=== PATIENT | male | born 1940 | race Caucasian/White ===

== ENCOUNTER → 2020-05-05 13:06 | Outpatient (CLI) | payer MEDICARE, OTHER, SELFPAY | PROVIDERS: PCP Internal Medicine; Referring Provider Internal Medicine Cardiovascular Disease; Visit Provider Internal Medicine Cardiovascular Disease | DX: I45.5 Other specified heart block (principal); I45.10 Unspecified right bundle-branch block; Z86.73 Personal history of transient ischemic attack (TIA), and cerebral infarction without residual deficits; I25.810 Atherosclerosis of coronary artery bypass graft(s) without angina pectoris; Z95.1 Presence of aortocoronary bypass graft; Z95.5 Presence of coronary angioplasty implant and graft; E11.9 Type 2 diabetes mellitus without complications | CPT/HCPCS: 93225; 93226 ==

== ENCOUNTER → 2020-12-30 06:49 | Outpatient (CLI) | payer MEDICARE, OTHER, SELFPAY ==
--- NOTE | 2020-12-30 17:43 | STRESSREP ---
Stress Test Report Pharmacologic myocardial perfusion stress test. 80-year-old male with a history of nonsustained ventricular tachycardia status post coronary bypass surgery. Stress protocol: Resting EKG demonstrates atrial rhythm with a rate of 97 bpm right bundle branch block is noted resting blood pressure is 150/84 mmHg. 0.4 mg of regadenoson was infused per usual protocol followed by rapid intravenous saline flush injection continuous EKG monitoring was performed. The patient maintained an atrial rhythm with a heart rate of approximately 112 bpm with a maximum of the same which was 78% of max impact at heart rate the maximum workload was one metabolic equivalent. At rest there were no ST or T wave changes noted with did not meet the criteria for ischemia and at peak infusion nonspecific ST changes were noted with did not meet the criteria for ischemia. Patient appeared to maintain his atrial rhythm. Myocardial perfusion protocol. 10.5 mCi of technetium 99m sestamibi was injected at rest. 0.4 mg of regadenoson was infused per usual protocol. At peak infusion 33.6 mCi of technetium 99m sestamibi was injected stress images were obtained stress and rest images were reconstructed and compared in the short axis vertical long and horizontal long axis and gated images were also obtained per Perfusion SPECT analysis: Review of the stress images demonstrate a mildly dilated cardiac silhouette size. There is a large defect on the stress images involving the entire inferior wall extending to the apex with normal perfusion noted in the anterior wall and lateral wall. The resting images demonstrate a similar pattern. The above appears to be suggestive of a previous extensive inferior infarct. No reversibility is noted to suggest ischemia. Gated SPECT analysis: The gated ejection fraction is 32%. Conclusion: Abnormal myocardial perfusion stress test with evidence of previous extensive inferior infarct. No ischemia is noted. Dilated cardiomyopathy is present. Atrial tachyarrhythmia noted.
== END ==
PROVIDERS: PCP Internal Medicine; Referring Provider Physician Assistant Medical; Visit Provider Physician Assistant Medical
DX: I47.1 Supraventricular tachycardia (principal); I42.0 Dilated cardiomyopathy; I25.2 Old myocardial infarction
CPT/HCPCS: 78452; 93017; A9500; A4216; J2785

== ENCOUNTER → 2021-01-16 10:47 | Outpatient (CLI) | payer MEDICARE, OTHER, SELFPAY ==
--- NOTE | 2021-01-16 10:49 | ECHOD_ITS ---
Reason For Study: SYNCOPE/NEAR SYNCOPE Procedure This was a 2D Doppler, Color Flow transthoracic echocardiogram. The study was technically difficult. DEFINITY DEFERRED due to elevated PAP. Exam performed in department. Left Ventricle Normal LV size. The estimated ejection fraction is 25 %. Stage 3 diastolic dysfunction. There are regional wall motion abnormalities as specified. Anterior [place] : Severely Hypokinetic. Mid- Anterior : Severely Hypokinetic. Mid-anteroseptal : Severely Hypokinetic. The rest of the wall segments are hypokinetic. Right Ventricle Normal RV size. Normal systolic function. Atria Normal left atrium. Normal right atrium. Mitral Valve Normal mitral valve. Tricuspid Valve Normal tricuspid valve. Moderate (2+) tricuspid valve insufficiency. Pulmonary artery systolic pressure is 62 mmHg. Moderate pulmonary hypertension. Aortic Valve Trisinus/trileaflet aortic valve. Mild (1+) aortic valve insufficiency. Pulmonic Valve Normal pulmonic valve. Great Vessels Normal aortic root. The pulmonary artery is normal size. Normal inferior vena cava. Pericardium/Pleural No pericardial effusion. MMode/2D Measurements & Calculations LVIDd: 5.1 cm IVSd: 0.71 cm Ao root diam: 2.5 cm LVIDs: 4.7 cm LVPWd: 0.81 cm RVDd: 3.7 cm FS: 6.9 % LAV(MOD-bp): 58.3 ml LA A4 area: 20.5 cm2 LA dimension(2D): 4.5 cm LAV(MOD-bp) Indexed: 31.2 ml/m2 LAV(MOD-sp2): 58.2 ml LAV(MOD-sp4): 57.6 ml RA A4 area: 11.9 cm2 Doppler Measurements & Calculations MV E max napoleon: 110.7 cm/sec Lat Peak E' [place]: 5.1 cm/sec Med Peak E' [place]: 2.3 cm/sec MV A max nap[place]on: 51.4 cm/sec E/E' lat: 21.6 E/E' med: 48.3 MV E/A: 2.2 Ao V2 max: 79.9 cm/sec AI max napoleon: 319.0 cm/sec LV V1 max: 61.2 cm/sec Ao max P.6 mmHg AI max P.7 mmHg LV V1 max P.5 mmHg AI dec slope: 268.8 cm/sec2 AI P1/2t: 347.6 msec PA V2 max: 86.9 cm/sec PI end-d napoleon: 167.4 cm/sec TR max napoleon: 381.8 cm/sec TR max P.3 mmHg ECHO/Echo Complete Interpretation Summary Normal LV size. The estimated ejection fraction is 25 %. Stage 3 diastolic dysfunction. Pulmonary artery systolic pressure is 62 mmHg. Moderate pulmonary hypertension. The study was technically difficult. Compared to previous study, the left ventr icular systolic function has worsened.. Ordering Physician: Roseanne Jacques Referring Physician: BINTA PUENTES Performed By: Lucila Wade, MAMI, RVT
== END ==
PROVIDERS: PCP Internal Medicine; Referring Provider Physician Assistant Medical; Visit Provider Physician Assistant Medical
DX: I47.1 Supraventricular tachycardia (principal); R94.39 Abnormal result of other cardiovascular function study
CPT/HCPCS: 93306

== ENCOUNTER 2021-01-26 15:28 | Observation (INO) | payer MEDICARE, OTHER, SELFPAY ==
--- NOTE | 2021-01-19 10:13 | RAD_ITS ---
STUDY: X-RAY CHEST REASON FOR EXAM: Male, 80 years old. [place] TECHNIQUE: PA and lateral views of the chest. COMPARISON: None. FINDINGS: There is a pattern of left greater than right peripheral interstitial densities. There is patchy density in the left lung base blunting of the left costophrenic angle. There is linear density along the mid left chest projected over the heart. There is moderate cardiac enlargement. Sternotomy wires are seen midline. Normal mediastinum and laverne. Normal visualized pulmonary arteries. There is atherosclerotic calcification of the aortic arch with tortuosity. There are diffuse degenerative changes of the visualized thoracic spine. Normal visualized ribs, clavicles, and shoulders. There is no demonstrated abnormality of the visualized soft tissue structures of the upper abdomen. RAD/Chest PA and Lateral IMPRESSION: Left greater than right peripheral interstitial infiltrates. Consider possible atypical pneumonia possible viral pneumonia. Potentially asymmetric edema. Small left effusion. Cardiomegaly status post sternotomy. Electronically Signed: Chastity Smith MD at 0:59 EST Tel , Service support ,
[2021-01-19 10:50] LABS: Absolute Lymphocyte Count 1.02 X10^3/uL (0.83-4.51); Absolute Neutrophil Count 6.2 X10^3/uL (2.0-7.7); Basophil# 0.05 X10^3/uL; Basophil% 0.6 % (0-1); Eosinophil# 0.19 X10^3/uL; Eosinophils% 2.3 % (0-5); Hematocrit 35.3 % (40-54); Hemoglobin 11.5 g/dL (13.0-16.5); Lymphocyte # 1.02 X10^3/ul (0.83-4.51); Lymphocyte % 12.3 % (19-41); Mean Corp Hgb Conc 32.6 g/dL (32-36); Mean Corpuscular Hgb 31.9 pg (27.0-32.0); Mean Corpuscular Volume 98.1 fL (80-94); Monocyte# 0.81 X10^3/uL; Monocyte% 9.8 % (0-10); NRBC Flagged by Analyzer 0 % (0-5); Neutrophil # 6.16 X10^3/uL (2.7-7.7); Neutrophil % 74.5 % (47-70); Platelet Count 335 K/mm3 (150-450); RBC Distribution Width SD 50.7 fl (35.1-43.9); White Blood Count 8.3 K/mm3 (4.4-11.0)
[2021-01-19 10:56] LABS: International Normalized Ratio 1.2; Prothrombin Time (Protime)PT. 14.2 SECONDS (11.7-14.9)
[2021-01-19 11:21] LABS: Anion Gap 7 (5-15); BUN 23 mg/dL (7-18); BUN/Creat Ratio 16.5 RATIO (10-20); Calcium,Total 9.4 mg/dL (8.5-10.1); Chloride 105 mmol/L (98-107); Creatinine, Serum 1.39 mg/dL (0.70-1.30); EST Glomerular Filtration Rate 52 mL/min (>60); Est Glom Filt Rate - Afr Amer 63 mL/min (>60); Glucose 184 mg/dL (74-106); Potassium 4.7 mmol/L (3.5-5.1); Sodium Level 138 mmol/L (136-145)
[2021-01-23 13:13] VITALS: BMI 30.4
--- NOTE | 2021-01-26 12:33 | CL.D_ITS ---
Patient Name: EL TERRY Study Date: 01/26/2021 Performing: Morris Jacobson MD Ht: 64.17 inches 163 cm : 1940 Wt: 176.37 lbs 80 kg Age: 81 Gender: male BSA: 1.86 PROCEDURE(S) PERFORMED [id number])LHC/COR/LV/CABG CLINICAL PROFILE AND INDICATIONS Indications: Suspected CAD Heart Failure: NYHA Class: 3, Newly Diagnosed: Yes, Heart Failure Type: Systolic Stress/Imaging Date: 12/30/2020tress Test with SPECT MPI: Indeterminant CAD Presentations: Unstable angina. CONCLUSIONS Severe coronary artery disease with totally occluded viejas vessels and a patent left internal mammar y artery to the left anterior descending artery RECOMMENDATIONS Medical therapy and urgent consideration for an implantable defibrillator DESCRIPTION OF PROCEDURE The patient arrived to the procedure lab. The risks and benefits of the procedure as well as a full d escription of our services here and current unavailability of surgical backup were fully explained to the patient and/or their significant other prior to the catheterization. The Timeout was completed, verifying the correct patient and procedure. The patient's procedural site was prepped and draped in the usual fashion. Local anesthetic was given subcutaneously to right groin region with Lidocaine 2%. Using a modified Seldinger technique, arterial access was obtained via the right femoral artery, a 5 Fr sheath was inserted. Left Coronary Artery selective angiography was performed in multiple views u sing a 5 Fr. JL4 catheter. Right Coronary Artery selective angiography was then performed in multiple views using a 5 Fr. 3DRC (Amol) catheter. Left internal mammary artery graft to the LAD selectiv e angiography was performed in multiple views using a 5 Fr. 3DRC (Amol) catheter. Saphenous Vein graft to the unknown artery (occluded graft) selective angiography was performed in si ngle view using a 5 Fr. AR MOD catheter. Saphenous Vein graft to the unknown artery (occluded graft) selective angiography was performed in single view using a 5 Fr. AR MOD catheter. Left Ventriculograp hy was performed in GUTIERREZ projection using a 5 Fr. Pigtail catheter. LV to AO pullback pressures were t hen recorded. Right lower extremity selective angiography was then performed in single view THROUGH 5 F 11CM SHEATH FOR CLOSURE DEVICE EVALUATION.The arterial sheath was pulled and a Mynx closure device was deployed for hemostasis CORONARY ANGIOGRAPHY DOMINANCE: Right Dominant LEFT HEART ASSESSMENT Left Ventricular Ejection Fraction: by LV Gram 15 % Inferior Basal Akinesis. Inferior Mid Akinesis. Inferior Lateral Akinesis. Anterior Hypokinesis - Sev ere Depressed Left Ventricular systolic function Patient developed an episode of ventricular standstill with the left ventriculogram with spontaneous resumption but also received 2 compressions LEFT MAIN: Previously placed stent is patent with a new 30 % lesion at distal edge of stent LEFT ANTERIOR DESCENDING ARTERY: OSTIAL LAD: is occluded CIRCUMFLEX ARTERY: Previously stented vessel is noted to be small but patent. RIGHT CORONARY ARTERY: PROX RCA: is occluded GRAFTS: Sequential graft to the Obtuse marginal branch is noted to be occluded Saphenous Vein graft to the RCA Was stented previously extensively and is noted to be occluded at the ostium CRUZ graft to the Mid LAD is patent COMPLICATIONS No Complications PROCEDURE MEDICATIONS Versed 1 mg IV Fentanyl 50 mcg IV Oxygen: 2 L/min via nasal cannula Oxygen: 4 L/min via nasal cannula IV Fluids: .9 NaCl IV started @ 100 ml/hr 01/26/2021 11:04:48 SUMMARY OF HEMODYNAMIC DATA Time AIR REST ECG 08:07:01 AO 135/70 (97) SA 11:48:23 LV 123/10, 26 12:01:50 LV 123/11, 28 12:01:56 LV 104/7, 21 12:02:54 LV 109/8, 23 12:03:02 LVp 0/5, 0 12:03:12 AOp 126/66 (93) 12:03:17 AO 153/70 (101) 12:05:32 Signed By Morris Jacobson MD On 01/26/2021 12:32:07 Morris Jacobson MD
[2021-01-26 15:52] VITALS: BP 142/71; PULSE 86; RESP 18; TEMP 36.4; O2SAT 94
[2021-01-26 17:01] VITALS: PULSE 83
--- NOTE | 2021-01-26 17:03 | NURSING ---
Addendum entered by Rita Bach 01/26/21 17:04: Family present in room visiting with patient, aware of bed and transport time Original Note: This RN called report to [facility], 7th floor, spoke with [place]. Transport to be here @ [phone]
[2021-01-26 18:39] VITALS: BP 116/58; PULSE 78; RESP 18; TEMP 36.5; O2SAT 99
[2021-01-26 21:14] VITALS: BP 136/83; PULSE 82; RESP 18; TEMP 36.4; O2SAT 100
== END 2021-01-26 21:50 | disposition home or self-care (01) ==
LOC: PCU 16:06
PROVIDERS: Physician Assistant Medical; Admitting Provider Internal Medicine Cardiovascular Disease; PCP Internal Medicine; Referring Provider Internal Medicine Cardiovascular Disease; Visit Provider Internal Medicine Cardiovascular Disease
DX: I25.110 Atherosclerotic heart disease of native coronary artery with unstable angina pectoris (principal); E11.9 Type 2 diabetes mellitus without complications; I25.82 Chronic total occlusion of coronary artery; R94.39 Abnormal result of other cardiovascular function study; I42.9 Cardiomyopathy, unspecified; Z95.1 Presence of aortocoronary bypass graft; Z86.16 Personal history of COVID-19; Z79.899 Other long term (current) drug therapy; Z79.82 Long term (current) use of aspirin; Z79.02 Long term (current) use of antithrombotics/antiplatelets; Z79.84 Long term (current) use of oral hypoglycemic drugs; Z87.891 Personal history of nicotine dependence; I47.2 Ventricular tachycardia; I45.5 Other specified heart block
CPT/HCPCS: 36415; 71046; 80048; 85025; 85610; 93459; 99152; 99153; 99218; C1760; J7040; A4216; C1769; G0378; Q9967

== ENCOUNTER 2021-05-25 07:48 | Outpatient (CLI) | payer MEDICARE, OTHER, SELFPAY ==
--- NOTE | 2021-05-25 07:51 | ECHOCS_ITS ---
Reason For Study: s/p CABG Procedure This was a 2D Doppler, Color Flow transthoracic echocardiogram. The study was technically difficult. Contrast injection was performed. Exam performed in department. Left Ventricle Normal LV size. Moderately severe segmental systolic dysfunction (see wall motion). The estimated ejection fraction is 25 %. Stage 1 diastolic dysfunction. [place] : Hypokinetic. Mid-Anterior : Hypokinetic. Mid-anteroseptal : Hypokinetic. Right Ventricle Normal RV size. ICD or pacer leads identified within the right ventricle. Normal systolic function. Atria The left atrium is mildly enlarged. Normal right atrium. Mitral Valve Normal mitral valve. Trivial eccentric mitral valve insufficiency. Tricuspid Valve Normal tricuspid valve. Mild (1+) tricuspid valve insufficiency. Pulmonary artery systolic pressure is 35 mmHg. Aortic Valve Trisinus/trileaflet aortic valve. Mild focal aortic valve thickening. Mild (1+) aortic valve insufficiency. Medication 22 gauge I.V. with prn adaptor inserted into right arm. Diluted definity 3ml given slow IV push to enhance endocardial definition. MMode/2D Measurements & Calculations LVIDd: 5.1 cm IVSd: 0.94 cm Ao root diam: 3.1 cm LVIDs: 4.3 cm LVPWd: 0.87 cm LA dimension: 3.7 cm RVDd: 3.3 cm FS: 16.3 % LAV(MOD-bp): 71.2 ml LA A4 area: 21.7 cm2 RA A4 area: 16.3 cm2 LAV(MOD-bp) Indexed: 39.0 ml/m2 LAV(MOD-sp2): 66.9 ml LAV(MOD-sp4): 67.0 ml Time Measurements MV dec time: 0.17 sec Doppler Measurements & Calculations MV E max napoleon: 104.5 cm/sec Lat Peak E' [place]: 3.8 cm/sec Med Peak E' [place]: 4.3 cm/sec MV A max [place]: 115.1 cm/sec E/E' lat: 27.4 E/E' med: 24.5 MV E/A: 0.91 MV V2 max: 131.8 cm/sec MV P1/2t max [place]: 99.3 cm/sec Ao V2 max: 98.1 cm/sec MV max P.0 mmHg MV P1/2t: 111.9 msec Ao max P.9 mmHg MV V2 mean: 75.5 cm/sec MV mean P.7 mmHg MV dec slope: 260.0 cm/sec2 MV V2 VTI: 29.9 cm MVA(P1/2t): 2.0 cm2 AI end-d nap[place]: 255.7 cm/sec LV V1 max: 64.3 cm/sec PA V2 max: 84.6 cm/sec LV V1 max P.7 mmHg TR max napoleon: 277.6 cm/sec TR max P.8 mmHg ECHO/Echo Complete W/ Contrast Interpretation Summary Normal LV size. Moderately severe segmental systolic dysfunction (see wall motion). The estimated ejection fraction is 25 %. Stage 1 diastolic dysfunction. Mild (1+) aortic valve insufficiency. Pulmonary artery systolic pressure is 35 mmHg. Compared to the previous the TR velocity is less Contrast injection was perform ed. Ordering Physician: Morris Jacobson Referring Physician: Heather Morrissey M.D. Performed By: Wiley Bear RCS
--- NOTE | 2021-05-25 15:34 | RAD_ITS ---
STUDY: X-RAY - THORACIC SPINE REASON FOR EXAM: Male, 81 years old. Upper lumbar, lower thoracic back pain TECHNIQUE: 3 view(s) of the thoracic spine were obtained. COMPARISON: Chest x-ray 01/19/2021. FINDINGS: Vertebral bodies are normal height. No definite fracture demonstrated. No subluxation. Bridging osteophytes throughout all levels. Question ankylosing spondylitis. No paravertebral soft tissue mass identified. Sternal wires, pacemaker leads noted. RAD/Thoracic Spine 3 Views IMPRESSION: No definite evidence of fracture or subluxation. Extensive degenerative changes possible ankylosing spondylitis. Electronically Signed: Lucila Cohen MD at 5:19 EDT ,
== END 2021-05-25 23:59 | disposition home or self-care (01) ==
PROVIDERS: PCP Internal Medicine; Referring Provider Internal Medicine Cardiovascular Disease; Visit Provider Internal Medicine Cardiovascular Disease
DX: M54.50 Low back pain, unspecified (principal); M54.6 Pain in thoracic spine; I51.9 Heart disease, unspecified
CPT/HCPCS: 72072; 93306; Q9957; A4216; C8929

== ENCOUNTER 2021-07-20 16:47 | Emergency (ER) | payer MEDICARE, OTHER, SELFPAY ==
[2021-07-20 16:49] VITALS: BP 127/52; PULSE 88; RESP 18; TEMP 36.3; O2SAT 97; BMI 30.4
--- NOTE | 2021-07-20 17:02 | EDS_ITS ---
HPI History of Present Illness Chief Complaint: Abn Labs Informant: patient and spouse/S.O. Narrative Narrative: Asymptomatic patient is here after some abnormal routine labs, indicating that his BUN is 46 and his creatinine is 2.4. He states he is urinating as normal. States he drinks a lot of water, and as such he urinates every hour or so typically, he was also told that his hemoglobin A1c was elevated compared with usual, at 8.7 now. It was 6.6 about 9 months ago. 6 months ago his creatinine was 1.39. He has never needed to see a digital hardware design engineer for anything. [facility] Medical History Atherosclerosis of coronary artery bypass graft without angina pectoris Atherosclerotic heart disease of [place] coronary artery without angina pectoris Biventricular ICD (implantable cardioverter-defibrillator) in place (01/28/21) Carotid artery stenosis History of CVA (cerebrovascular accident) (03/02/20) Ischemic cardiomyopathy Nonsustained paroxysmal supraventricular tachycardia Overweight Right bundle branch block (RBBB) Sinus pause Skin cancer Type 2 diabetes mellitus Home Medications coenzyme Q10 100 mg capsule 100 mg PO DAILY 11/02/19 [History Last Taken Unknown] omega 1-sxu-pxm-fish oil 300 mg-1,000 mg capsule 1 cap PO DAILY cap 11/02/19 [History Last Taken Unknown] aspirin 81 mg tablet,delayed release 81 mg PO DAILY 03/11/20 [History Last Taken 01/26/21] melatonin 3 mg capsule 3 mg PO HS PRN 11/03/20 [History Last Taken Unknown] metoprolol succinate 25 mg tablet,extended release 24 hr 25 mg PO DAILY #90 tab 02/24/21 [Rx Last Taken Unknown] nitroglycerin 0.4 mg sublingual tablet 0.4 mg SUBLINGUAL Q5-15M PRN #25 tab 02/25/21 [Rx Last Taken Unknown] dapagliflozin 10 mg tablet 10 mg PO DAILY #90 tab 04/02/21 [Rx Last Taken Unknown] losartan 50 mg tablet 50 mg PO DAILY #90 tab 04/15/21 [Rx Last Taken Unknown] amiodarone 200 mg tablet 200 mg PO DAILY #30 tab 06/08/21 [Rx Last Taken Unknown] clopidogrel 75 mg tablet 75 mg PO DAILY #90 tab 07/20/21 [Rx Last Taken Unknown] Allergy/AdvReac Type Severity Reaction Status Date / Time atorvastatin AdvReac insomnia Verified 07/20/21 16:47 Family History Other Myocardial infarction Surgical History H/O coronary artery bypass surgery (1999) History of coronary artery stent placement (07/19/18) History of left heart catheterization (01/26/21) Social History Smoking Status: Former smoker alcohol intake: never substance use type: does not use what type of physical activity do you participate in: none ROS ROS ED Constitutional Constitutional ED: Denies chills or fever(s) Eyes Eyes: Denies change in vision or diplopia ENT ENT ED: Denies rhinorrhea or sore throat Cardiovascular Cardiovascular: Denies chest pain or palpitations Respiratory/Chest Respiratory/Chest: Denies cough or dyspnea Gastrointestinal Gastrointestinal: Denies abdominal pain, diarrhea, nausea or vomiting Genitourinary Genitourinary ED: Denies dysuria or hematuria Musculoskeletal Musculoskeletal: Denies back pain or neck pain Integumentary Denies abscess or rash Neurologic Neurologic: Reports abnormal speech and other Details: History of a stroke with some aphasia symptoms and no peripheral residual symptoms. ; Denies headache(s), paresthesias or weakness Psychiatric Psychiatric: Denies anxiety or suicidal thoughts Endocrine Endocrinology: Reports polydipsia and polyuria EXAM Physical Exam Const Vital Signs: 07/20/21 16:49 07/20/21 20:30 Temperature 97.3 F L Temperature Source Temporal Pulse Rate 88 60 Respiratory Rate 18 17 Blood Pressure 127/52 H 128/62 H Blood Pressure Mean 77 84 Pulse Ox 97 98 Oxygen Delivery Method Room Air Room Air Positive well nourished and well developed General Appearance ED: well developed and NAD HEENT Reports moist mucous membranes normocephalic and atraumatic Eyes PERRL and EOMs intact bilaterally Neck full ROM and supple Resp normal respiratory effort and clear to auscultation bilaterally Cardio regular rate, regular rhythm and no murmurs GI non-tender and non-distended Auscultation: normoactive bowel sounds Palpation: soft Back/Spine no CVA tenderness General Back: other FROM Extremity normal to inspection General Extremety ED: Negative for edema, pulses abnormal or tenderness General Extremity: Negative for edema or pulses abnormal Neuro oriented x3, CN's II-XII intact bilaterally, no sensory deficits noted and gait normal Neuro Narrative: Mildly dysarthric no aphasia Sensorium / Orientation: awake and alert Motor Exam: strength 5/5 throughout Skin no rashes or lesions noted and no wounds MDM MDM MDM Narrative Medical decision making narrative: I reviewed the patient's labs. I gave him a 1000 cc IV fluid bolus of saline, and then we repeated his chemistries. His creatinine is improved although still abnormal, to 2.3. Given this and the fact that the patient is asymptomatic and he is on Lasix 40 mg once a day, I do not think he needs to be admitted for an emergency nephrology consult by any means. I would repeat the chemistries in days or a week after he discontinues the Lasix which I discussed with him. Discharged & stable for outpatient follow-up. Lab Data Attestation: I reviewed the patient's lab results. Labs: Laboratory Results - last 24 hr 07/20/21 19:45 Sodium 139 Potassium 4.3 Chloride 107 Carbon Dioxide 26.0 Anion Gap 6 BUN 48 H Creatinine 2.30 H Estim Creat Clear Calc 21.81 Est GFR (MDRD) Af Amer 35 L Est GFR (MDRD) Non-Af 29 L BUN/Creatinine Ratio 20.9 H Glucose 185 H Calcium 8.4 L Discharge Plan Triage Chief Complaint: Abn Labs ED Provider: Glen Lujan Dx/Rx/DC Orders Clinical Impression: MOISE (acute kidney injury), Dehydration Instructions: Acute Kidney Failure Dc Prescriptions: Continued omega 3-pes-kzh-fish oil [Fish Oil] 300-1,000 mg capsule 1 cap PO DAILY RF: 0 coenzyme Q10 [Co Q-10] 100 mg capsule 100 mg PO DAILY RF: 0 aspirin [Adult Aspirin Regimen] 81 mg tablet,delayed release (DR/EC) 81 mg PO DAILY RF: 0 melatonin 3 mg capsule 3 mg PO HS PRN (Reason: Insomnia) RF: 0 metoprolol succinate 25 mg tablet extended release 24 hr 25 mg PO DAILY Qty: 90 RF: 3 clopidogrel [Plavix] 75 mg tablet 75 mg PO DAILY Qty: 90 RF: 1 nitroglycerin 0.4 mg tablet, sublingual 0.4 mg sublingual Q5-15M PRN (Reason: chest pain) Qty: 25 RF: 3 Farxiga 10 mg tablet 10 mg PO DAILY Qty: 90 RF: 3 losartan 50 mg tablet 50 mg PO DAILY Qty: 90 RF: 3 amiodarone 200 mg tablet 200 mg PO DAILY Qty: 30 RF: 4 Discontinued furosemide 40 mg tablet 40 mg PO DAILY Qty: 90 RF: 1 Primary Care Provider: Heather Morrissey Referrals: Heather Morrissey MD [Primary Care Provider] - 3-5 Days Disposition Disposition: Home, Self Care
[2021-07-20] MEDS: 0.9% Normal Saline 1,000 ML 999 ML IV (17:30)
[2021-07-20 20:06] LABS: Anion Gap 6 (5-15); BUN 48 mg/dL (7-18); BUN/Creat Ratio 20.9 RATIO (10-20); Calcium,Total 8.4 mg/dL (8.5-10.1); Chloride 107 mmol/L (98-107); EST Glomerular Filtration Rate 29 mL/min (>60); Est Glom Filt Rate - Afr Amer 35 mL/min (>60); Estimated Creatinine Clearance 21.81 ml/min; Glucose 185 mg/dL (74-106); Potassium 4.3 mmol/L (3.5-5.1); Sodium Level 139 mmol/L (136-145)
[2021-07-20 20:30] VITALS: BP 128/62; PULSE 60; RESP 17; O2SAT 98
[2021-07-20 21:10] VITALS: BP 122/74; PULSE 71; RESP 17; O2SAT 98
== END 2021-07-20 21:12 | disposition home or self-care (01) ==
PROVIDERS: Emergency Provider Emergency Medicine; PCP Internal Medicine; Visit Provider Emergency Medicine
DX: N17.9 Acute kidney failure, unspecified (principal); E11.9 Type 2 diabetes mellitus without complications; E86.0 Dehydration; I25.10 Atherosclerotic heart disease of native coronary artery without angina pectoris; Z95.810 Presence of automatic (implantable) cardiac defibrillator; I25.5 Ischemic cardiomyopathy; Z85.828 Personal history of other malignant neoplasm of skin; Z79.82 Long term (current) use of aspirin; Z79.899 Other long term (current) drug therapy; Z79.02 Long term (current) use of antithrombotics/antiplatelets; Z87.891 Personal history of nicotine dependence; I69.920 Aphasia following unspecified cerebrovascular disease; Z68.30 Body mass index [BMI] 30.0-30.9, adult; E66.3 Overweight
CPT/HCPCS: 36415; 80048; 80053; 81001; 82043; 83735; 85025; 96360; 99282; J7030; A4216

== ENCOUNTER → 2021-07-20 | Outpatient (CLI) | payer MEDICARE, OTHER, SELFPAY ==
[2021-07-20 11:16] LABS: Bacteria 0 SEEN /hpf (None Seen); Mucous, Urine 0 SEEN /hpf (<or=2+); Red Blood Cells-Urine 0 SEEN /hpf (0-5); Squamous Epithelial Cells - UA 0 SEEN /hpf (0-5); White Blood Cells 0 SEEN /hpf (0-5)
[2021-07-20 12:02] LABS: Color, Urine Yellow (Yellow); Glucose, Dipstick 1000 mg/dl (Normal); Ketone-Dipstick Negative (Negative); Leukocyte Esterase-Dipstick Negative /ul (Negative); Nitrite-Dipstick Negative (Negative); Occult Blood-Urine Negative /ul (Negative); Protein-Dipstick Negative (Negative); Urine Bilirubin Dipstick Negative (Negative); Urine Clarity Clear (Clear); Urine Urobilinogen Normal (Normal)
[2021-07-20 12:10] LABS: Absolute Lymphocyte Count 1.21 X10^3/uL (0.83-4.51); Absolute Neutrophil Count 5.5 X10^3/uL (2.0-7.7); Basophil# 0.06 X10^3/uL; Basophil% 0.8 % (0-1); Eosinophil# 0.27 X10^3/uL; Eosinophils% 3.4 % (0-5); Hematocrit 40.1 % (40-54); Hemoglobin 13.1 g/dL (13.0-16.5); Lymphocyte # 1.21 X10^3/ul (0.83-4.51); Lymphocyte % 15.3 % (19-41); Mean Corp Hgb Conc 32.7 g/dL (32-36); Mean Corpuscular Volume 94.8 fL (80-94); Mean Platelet Vol. 9.7 fl (6.2-12.0); Monocyte# 0.86 X10^3/uL; Monocyte% 10.8 % (0-10); NRBC Flagged by Analyzer 0 % (0-5); Neutrophil # 5.47 X10^3/uL (2.7-7.7); Neutrophil % 68.9 % (47-70); Platelet Count 256 K/mm3 (150-450); RBC Distribution Width CV 13.3 % (11.6-14.6); RBC Distribution Width SD 46.5 fl (35.1-43.9); Red Blood Count 4.23 M/mm3 (4.6-6.2); White Blood Count 7.9 K/mm3 (4.4-11.0)
[2021-07-20 12:26] LABS: Microalbumin,Random Urine 10.1 mg/L (NO RANGE EST.)
[2021-07-20 12:35] LABS: ALB/GLOB Ratio 0.8 RATIO (0.9-2.4); AST(SGOT) 21 U/L (15-37); Alanine Aminotransfer ALT/SGPT 15 U/L (16-61); Albumin, Serum 3.5 g/dL (3.2-5.0); Alkaline Phosphatase 79 U/L (45-117); Anion Gap 3 (5-15); BUN 46 mg/dL (7-18); BUN/Creat Ratio 19.2 RATIO (10-20); Calcium,Total 9.3 mg/dL (8.5-10.1); Chloride 102 mmol/L (98-107); EST Glomerular Filtration Rate 28 mL/min (>60); Est Glom Filt Rate - Afr Amer 34 mL/min (>60); Globulin 4.4 g/dL (2.2-4.2); Glucose 173 mg/dL (74-106); Magnesium 2.9 mg/dL (1.6-2.6); Potassium 4.6 mmol/L (3.5-5.1); Protein, Total 7.9 g/dL (6.4-8.2); Sodium Level 136 mmol/L (136-145)
== END | disposition home or self-care (01) ==
LOC: BIMLAB 11:15
PROVIDERS: PCP Internal Medicine; Referring Provider Physician Assistant; Visit Provider Physician Assistant
DX: E11.9 Type 2 diabetes mellitus without complications (principal); R29.898 Other symptoms and signs involving the musculoskeletal system; Z86.73 Personal history of transient ischemic attack (TIA), and cerebral infarction without residual deficits; I10 Essential (primary) hypertension
CPT/HCPCS: 36415; 80053; 81001; 82043; 83735; 85025

== ENCOUNTER → 2021-07-27 | Outpatient (CLI) | payer MEDICARE, OTHER, SELFPAY ==
[2021-07-27 12:48] LABS: Vitamin D,25 Hydroxy 21.2 ng/mL
[2021-07-27 13:49] LABS: Anion Gap 7 (5-15); BUN 31 mg/dL (7-18); BUN/Creat Ratio 15.7 RATIO (10-20); Calcium,Total 9.1 mg/dL (8.5-10.1); Chloride 106 mmol/L (98-107); Creatinine, Serum 1.98 mg/dL (0.70-1.30); EST Glomerular Filtration Rate 35 mL/min (>60); Est Glom Filt Rate - Afr Amer 42 mL/min (>60); Glucose 219 mg/dL (74-106); Potassium 5.4 mmol/L (3.5-5.1); Sodium Level 136 mmol/L (136-145)
== END | disposition home or self-care (01) ==
LOC: BIMLAB 09:36
PROVIDERS: PCP Internal Medicine; Referring Provider Physician Assistant; Visit Provider Physician Assistant
DX: E11.9 Type 2 diabetes mellitus without complications (principal); I25.5 Ischemic cardiomyopathy; E86.0 Dehydration; E55.9 Vitamin D deficiency, unspecified; I25.810 Atherosclerosis of coronary artery bypass graft(s) without angina pectoris; Z12.5 Encounter for screening for malignant neoplasm of prostate; Z86.73 Personal history of transient ischemic attack (TIA), and cerebral infarction without residual deficits
CPT/HCPCS: 36415; 80048; 82306

== ENCOUNTER → 2021-08-26 | Outpatient (CLI) | payer MEDICARE, OTHER, SELFPAY ==
[2021-08-26 13:25] LABS: Anion Gap 5 (5-15); BUN 40 mg/dL (7-18); BUN/Creat Ratio 20.1 RATIO (10-20); Calcium,Total 8.9 mg/dL (8.5-10.1); Chloride 108 mmol/L (98-107); Creatinine, Serum 1.99 mg/dL (0.70-1.30); EST Glomerular Filtration Rate 35 mL/min (>60); Est Glom Filt Rate - Afr Amer 42 mL/min (>60); Glucose 85 mg/dL (74-106); Potassium 4.8 mmol/L (3.5-5.1); Sodium Level 139 mmol/L (136-145); Thyroid Stim Hormone (TSH) 3.24 uIU/mL (0.358-3.74)
== END | disposition home or self-care (01) ==
LOC: LAB 11:46
PROVIDERS: PCP Internal Medicine; Referring Provider Physician Assistant Medical; Visit Provider Physician Assistant Medical
DX: I47.1 Supraventricular tachycardia (principal); Z79.899 Other long term (current) drug therapy
CPT/HCPCS: 36415; 80048; 84443

== ENCOUNTER → 2021-09-01 | Outpatient (CLI) | payer MEDICARE, OTHER, SELFPAY ==
--- NOTE | 2021-09-02 11:51 | PFT ---
INTRODUCTION: The patient is a 81-year-old male that presents for pulmonary function studies secondary to a diagnosis of long-term drug therapy. Respiratory therapy reported good patient effort. Bronchodilators were used during testing. INTERPRETATION: Forced expiration spirometry demonstrates no evidence of a large airways obstructive ventilatory defect. There was no significant response to aerosolized bronchodilators. Spirograms are of good quality and plateau normally. Body plethysmography was performed and revealed a decreased TLC to 3.46 L, 70% of predicted, indicative of a mild restrictive ventilatory impairment. Diffusing capacity by single breath CO is reduced at 50% of predicted. IMPRESSION: Mild restrictive ventilatory impairment with disproportionate reduction in diffusing capacity.
== END | disposition home or self-care (01) ==
LOC: PSN 10:25
PROVIDERS: PCP Internal Medicine; Visit Provider Physician Assistant Medical
DX: Z79.899 Other long term (current) drug therapy (principal)
CPT/HCPCS: 94060; 94726; 94729

== ENCOUNTER → 2021-10-13 | Outpatient (CLI) | payer MEDICARE, OTHER, SELFPAY ==
[2021-10-13 11:56] LABS: BNP,B-Type NATRIURETIC PEPTIDE 282.2 pg/mL (0-100)
[2021-10-13 11:59] LABS: Anion Gap 7 (5-15); BUN 45 mg/dL (7-18); BUN/Creat Ratio 19.1 RATIO (10-20); Calcium,Total 9.6 mg/dL (8.5-10.1); Chloride 103 mmol/L (98-107); Creatinine, Serum 2.36 mg/dL (0.70-1.30); EST Glomerular Filtration Rate 28 mL/min (>60); Est Glom Filt Rate - Afr Amer 34 mL/min (>60); Glucose 260 mg/dL (74-106); Potassium 4.5 mmol/L (3.5-5.1); Sodium Level 138 mmol/L (136-145)
== END | disposition home or self-care (01) ==
LOC: LAB 10:16
PROVIDERS: PCP Internal Medicine; Visit Provider Physician Assistant Medical
DX: I50.9 Heart failure, unspecified (principal)
CPT/HCPCS: 36415; 80048; 83880

== ENCOUNTER 2021-12-28 10:45 | Outpatient (CLI) | payer MEDICARE, OTHER, SELFPAY ==
[2021-12-28 11:28] LABS: Absolute Lymphocyte Count 0.92 X10^3/uL (0.83-4.51); Absolute Neutrophil Count 3.9 X10^3/uL (2.0-7.7); Basophil# 0.06 X10^3/uL; Eosinophil# 0.37 X10^3/uL; Hematocrit 40.6 % (40-54); Hemoglobin 12.9 g/dL (13.0-16.5); Lymphocyte # 0.92 X10^3/ul (0.83-4.51); Mean Corp Hgb Conc 31.8 g/dL (32-36); Mean Corpuscular Volume 94.4 fL (80-94); Mean Platelet Vol. 8.5 fl (6.2-12.0); Monocyte# 0.78 X10^3/uL; Monocyte% 12.7 % (0-10); NRBC Flagged by Analyzer 0 % (0-5); Neutrophil # 3.94 X10^3/uL (2.7-7.7); Neutrophil % 64.3 % (47-70); Platelet Count 419 K/mm3 (150-450); RBC Distribution Width CV 13.7 % (11.6-14.6); RBC Distribution Width SD 47.4 fl (35.1-43.9); White Blood Count 6.1 K/mm3 (4.4-11.0)
[2021-12-28 11:46] LABS: Hemoglobin A1c 7.1 % (3.8-5.6)
[2021-12-28 12:00] LABS: BNP,B-Type NATRIURETIC PEPTIDE 263.5 pg/mL (0-100)
[2021-12-28 12:09] LABS: ALB/GLOB Ratio 0.6 RATIO (0.9-2.4); AST(SGOT) 21 U/L (15-37); Alanine Aminotransfer ALT/SGPT 14 U/L (16-61); Albumin, Serum 3.1 g/dL (3.2-5.0); Alkaline Phosphatase 105 U/L (45-117); Anion Gap 5 (5-15); BUN 26 mg/dL (7-18); BUN/Creat Ratio 12.9 RATIO (10-20); Calcium,Total 9.2 mg/dL (8.5-10.1); Chloride 99 mmol/L (98-107); Creatinine, Serum 2.02 mg/dL (0.70-1.30); EST Glomerular Filtration Rate 34 mL/min (>60); Est Glom Filt Rate - Afr Amer 41 mL/min (>60); Globulin 5.6 g/dL (2.2-4.2); Glucose 194 mg/dL (74-106); Protein, Total 8.7 g/dL (6.4-8.2); Sodium Level 135 mmol/L (136-145)
== END 2021-12-28 23:59 | disposition home or self-care (01) ==
LOC: LAB 10:46
PROVIDERS: PCP Internal Medicine; Referring Provider Internal Medicine; Visit Provider Internal Medicine
DX: I50.9 Heart failure, unspecified (principal); E11.9 Type 2 diabetes mellitus without complications; E87.5 Hyperkalemia; Z79.899 Other long term (current) drug therapy; Z95.810 Presence of automatic (implantable) cardiac defibrillator; I25.810 Atherosclerosis of coronary artery bypass graft(s) without angina pectoris; I45.10 Unspecified right bundle-branch block
CPT/HCPCS: 36415; 80053; 83036; 83735; 83880; 85025

== ENCOUNTER → 2022-04-07 | Outpatient (CLI) | payer MEDICARE, OTHER, SELFPAY ==
--- NOTE | 2022-04-07 09:47 | ECHOLC_ITS ---
Reason For Study: Evaluate EF after programming to minimally pace Procedure This was a limited 2D transthoracic echocardiogram. Contrast injection was performed. Exam performed in department. Left Ventricle Normal LV size. The estimated ejection fraction is 25 %. Moderately severe segmental systolic dysfunction (see wall motion). [place] : Severely Hypokinetic. Mid-anteroseptal : Severely Hypokinetic. Mid-Anterior : Severely Hypokinetic. There is moderate to severe global hypokinesis of the left ventricle. Right Ventricle Normal RV size. ICD or pacer leads identified within the right ventricle. Normal systolic function. Atria Normal left atrium. Normal right atrium. Mitral Valve Mitral valve not well visualized. Tricuspid Valve Normal tricuspid valve. Mild (1+) tricuspid valve insufficiency. Pulmonary artery systolic pressure is 36 mmHg. Aortic Valve Trisinus/trileaflet aortic valve. Mild (1+) aortic valve insufficiency. Pulmonic Valve Normal pulmonic valve. Trivial pulmonic valve insufficiency. Great Vessels Normal aortic root. The pulmonary artery is normal size. Normal inferior vena cava. Pericardium/Pleural No pericardial effusion. Medication Diluted definity 3.5ml given slow IV push to enhance endocardial definition. MMode/2D Measurements & Calculations LVIDd: 5.1 cm IVSd: 0.90 cm LVIDs: 4.6 cm LVPWd: 0.82 cm LVAd ap4: 30.3 cm2 FS: 10.9 % LVLd ap4: 7.6 cm EDV(MOD-sp4): 97.7 ml EDV(sp4-el): 102.1 ml LVAs ap4: 23.4 cm2 LVLs ap4: 7.1 cm ESV(MOD-sp4): 65.5 ml ESV(sp4-el): 65.7 ml EF(MOD-sp4): 32.9 % EF(sp4-el): 35.6 % LVAd ap2: 28.2 cm2 SV(MOD-sp4): 32.2 ml SV(MOD-sp2): 29.1 ml LVLd ap2: 7.9 cm EDV(MOD-sp2): 83.8 ml EDV(sp2-el): 85.4 ml LVAs ap2: 21.0 cm2 LVLs ap2: 6.6 cm ESV(MOD-sp2): 54.7 ml ESV(sp2-el): 56.9 ml EF(MOD-sp2): 34.7 % SV(sp4-el): 36.4 ml Doppler Measurements & Calculations TR max warner: 285.5 cm/sec TR max P.6 mmHg ECHO/Echo Limited w/Contrast Interpretation Summary Normal LV size. The estimated ejection fraction is 25 %. Moderately severe segmental systolic dysfunction (see wall motion). Pulmonary artery systolic pressure is 36 mmHg. Contrast injection was performed. Compared to previous study, the left ventricu lar systolic function is the same.. Ordering Physician: Morris Jacobson Referring Physician: Heather Morrissey Performed By: Yancy Estrada, RDCS, RVT
== END | disposition home or self-care (01) ==
LOC: CVS 09:47
PROVIDERS: PCP Internal Medicine; Visit Provider Internal Medicine Cardiovascular Disease
DX: I47.1 Supraventricular tachycardia (principal); I50.9 Heart failure, unspecified; Z95.810 Presence of automatic (implantable) cardiac defibrillator; I25.5 Ischemic cardiomyopathy; I45.5 Other specified heart block; I45.10 Unspecified right bundle-branch block
CPT/HCPCS: 93308; Q9957; A4216; C8924

== ENCOUNTER → 2022-04-26 | Outpatient (CLI) | payer MEDICARE, OTHER, SELFPAY ==
[2022-04-26 12:39] LABS: Absolute Neutrophil Count 4.4 X10^3/uL (2.0-7.7); Basophil# 0.06 X10^3/uL; Basophil% 0.9 % (0-1); Eosinophil# 0.18 X10^3/uL; Eosinophils% 2.8 % (0-5); Hematocrit 43.5 % (40-54); Hemoglobin 14.2 g/dL (13.0-16.5); Mean Corp Hgb Conc 32.6 g/dL (32-36); Mean Corpuscular Hgb 31.1 pg (27.0-32.0); Mean Corpuscular Volume 95.2 fL (80-94); Mean Platelet Vol. 8.9 fl (6.2-12.0); Monocyte# 0.72 X10^3/uL; Monocyte% 11.1 % (0-10); NRBC Flagged by Analyzer 0 % (0-5); Neutrophil # 4.38 X10^3/uL (2.7-7.7); Neutrophil % 67.6 % (47-70); Platelet Count 258 K/mm3 (150-450); RBC Distribution Width CV 13.8 % (11.6-14.6); RBC Distribution Width SD 48.4 fl (35.1-43.9); Red Blood Count 4.57 M/mm3 (4.6-6.2); White Blood Count 6.5 K/mm3 (4.4-11.0)
[2022-04-26 13:01] LABS: Vitamin D,25 Hydroxy 57.6 ng/mL
[2022-04-26 13:08] LABS: ALB/GLOB Ratio 0.8 RATIO (0.9-2.4); AST(SGOT) 20 U/L (15-37); Alanine Aminotransfer ALT/SGPT 13 U/L (16-61); Albumin, Serum 3.4 g/dL (3.2-5.0); Alkaline Phosphatase 84 U/L (45-117); Anion Gap 5 (5-15); BUN 29 mg/dL (7-18); BUN/Creat Ratio 14.6 RATIO (10-20); Calcium,Total 9.3 mg/dL (8.5-10.1); Chloride 102 mmol/L (98-107); Cholesterol 211 mg/dL (200); Creatinine, Serum 1.98 mg/dL (0.70-1.30); EST Glomerular Filtration Rate 35 mL/min (>60); Est Glom Filt Rate - Afr Amer 42 mL/min (>60); Globulin 4.2 g/dL (2.2-4.2); Glucose 181 mg/dL (74-106); High Density Lipoprotein 40 mg/dL; PSA,Total - Annual Screen 4.68 ng/mL (0.00-4.00); Potassium 4.7 mmol/L (3.5-5.1); Protein, Total 7.6 g/dL (6.4-8.2); Sodium Level 137 mmol/L (136-145); Thyroid Stim Hormone (TSH) 2.96 uIU/mL (0.358-3.74); Triglycerides 211 mg/dL; Very Low Density Lipoprotein 42 mg/dL (5-40)
== END | disposition home or self-care (01) ==
LOC: LAB 11:51
PROVIDERS: PCP Internal Medicine; Referring Provider Internal Medicine; Visit Provider Internal Medicine
DX: I47.1 Supraventricular tachycardia (principal); I50.9 Heart failure, unspecified; E11.22 Type 2 diabetes mellitus with diabetic chronic kidney disease; N18.9 Chronic kidney disease, unspecified; Z95.1 Presence of aortocoronary bypass graft; Z86.73 Personal history of transient ischemic attack (TIA), and cerebral infarction without residual deficits; I25.810 Atherosclerosis of coronary artery bypass graft(s) without angina pectoris; Z13.220 Encounter for screening for lipoid disorders; Z12.5 Encounter for screening for malignant neoplasm of prostate; E55.9 Vitamin D deficiency, unspecified
CPT/HCPCS: 36415; 80053; 80061; 82306; 84153; 84443; 85025; G0103

== ENCOUNTER → 2023-06-22 | Outpatient (CLI) | payer MEDICARE, OTHER, SELFPAY ==
[2023-06-22 15:18] LABS: Absolute Lymphocyte Count 1.16 X10^3/uL (0.83-4.51); Absolute Neutrophil Count 7.2 X10^3/uL (2.0-7.7); Basophil# 0.05 X10^3/uL; Basophil% 0.5 % (0-1); Eosinophil# 0.15 X10^3/uL; Eosinophils% 1.5 % (0-5); Hematocrit 45.1 % (40-54); Hemoglobin 14.9 g/dL (13.0-16.5); Lymphocyte # 1.16 X10^3/ul (0.83-4.51); Lymphocyte % 11.8 % (19-41); Mean Corpuscular Volume 93.8 fL (80-94); Mean Platelet Vol. 9.4 fl (6.2-12.0); Monocyte# 1.21 X10^3/uL; Monocyte% 12.3 % (0-10); NRBC Flagged by Analyzer 0 % (0-5); Neutrophil # 7.19 X10^3/uL (2.7-7.7); Neutrophil % 73.2 % (47-70); Platelet Count 257 K/mm3 (150-450); RBC Distribution Width CV 13.2 % (11.6-14.6); RBC Distribution Width SD 45.2 fl (35.1-43.9); Red Blood Count 4.81 M/mm3 (4.6-6.2); White Blood Count 9.8 K/mm3 (4.4-11.0)
[2023-06-22 15:47] LABS: BNP,B-Type NATRIURETIC PEPTIDE 391.1 pg/mL (0-100)
[2023-06-22 15:54] LABS: ALB/GLOB Ratio 0.7 RATIO (0.9-2.4); AST(SGOT) 18 U/L (15-37); Alanine Aminotransfer ALT/SGPT 11 U/L (16-61); Albumin, Serum 3.5 g/dL (3.2-5.0); Alkaline Phosphatase 108 U/L (45-117); Anion Gap 5 (5-15); BUN 32 mg/dL (7-18); Calcium,Total 9.1 mg/dL (8.5-10.1); Chloride 101 mmol/L (98-107); Creatinine, Serum 2.14 mg/dL (0.70-1.30); EST Glomerular Filtration Rate 32 mL/min (>60); Est Glom Filt Rate - Afr Amer 38 mL/min (>60); Globulin 4.8 g/dL (2.2-4.2); Glucose 202 mg/dL (74-106); Magnesium 2.6 mg/dL (1.6-2.6); Potassium 3.9 mmol/L (3.5-5.1); Protein, Total 8.3 g/dL (6.4-8.2); Sodium Level 135 mmol/L (136-145); T4 Free Direct 1.24 ng/dL (0.76-1.46); Thyroid Stim Hormone (TSH) 2.37 uIU/mL (0.358-3.74)
== END | disposition home or self-care (01) ==
LOC: LAB 14:51
PROVIDERS: PCP Internal Medicine; Referring Provider Nurse Practitioner Family; Visit Provider Nurse Practitioner Family
DX: Z95.810 Presence of automatic (implantable) cardiac defibrillator (principal); I25.5 Ischemic cardiomyopathy; I47.10 Supraventricular tachycardia, unspecified; R53.83 Other fatigue; I25.810 Atherosclerosis of coronary artery bypass graft(s) without angina pectoris; R06.00 Dyspnea, unspecified
CPT/HCPCS: 36415; 80053; 83735; 83880; 84439; 84443; 85025

== ENCOUNTER → 2023-07-21 | Outpatient (CLI) | payer MEDICARE, OTHER, SELFPAY ==
--- NOTE | 2023-07-21 12:09 | STRESSREP ---
Stress Test Report Pharmacologic myocardial perfusion stress test. 83-year-old man with a history of ischemic cardiomyopathy Resting EKG demonstrates sinus rhythm with a rate of 75 bpm. Resting blood pressure is 138/70 mmHg. 0.4 mg of regadenoson was infused per usual protocol followed by rapid intravenous saline flush injection. Continuous EKG monitoring was performed. The maximum heart rate was 86 bpm which was 61% of max impacted heart rate the maximum workload was 1 metabolic equivalent. At rest there were no ST or T wave changes noted to suggest ischemia and at peak infusion nonspecific ST changes were noted which did not meet the criteria for ischemia. No clinical angina is noted. The final blood pressure was 130/66 mmHg. Myocardial perfusion protocol. 11.9 mCi of technetium 99m sestamibi was injected at rest. 0.4 mg of regadenoson was infused per usual protocol. At peak infusion 34.3 mCi of technetium 99m sestamibi was injected stress images were obtained stress and rest images were reconstructed and compared in the short axis vertical long and horizontal long axis. Gated images were also obtained. Perfusion SPECT analysis: Review of the stress images demonstrate a mildly dilated cardiac silhouette size with reduced perfusion noted involving the anterior septal wall as well as the entire inferior wall. The resting images demonstrate a similar pattern. The above is suggestive of a previous anterior septal infarct and inferior infarct. No significant improvement is noted to suggest reversibility. Gated SPECT analysis: The gated ejection fraction is 28%. Conclusion: Myocardial perfusion stress test with no evidence of ischemia. Previous anteroseptal and extensive inferior infarct is noted. Ischemic cardiomyopathy.
== END | disposition home or self-care (01) ==
PROVIDERS: PCP Internal Medicine; Referring Provider Nurse Practitioner Family; Visit Provider Nurse Practitioner Family
DX: I47.10 Supraventricular tachycardia, unspecified (principal); Z95.810 Presence of automatic (implantable) cardiac defibrillator; I25.5 Ischemic cardiomyopathy; Z95.5 Presence of coronary angioplasty implant and graft; Z95.1 Presence of aortocoronary bypass graft
CPT/HCPCS: 78452; 93017; A9500; A4216; J2785

== ENCOUNTER → 2023-10-11 | Outpatient (CLI) | payer MEDICARE, OTHER, SELFPAY ==
[2023-10-11 09:25] LABS: Absolute Lymphocyte Count 1.36 X10^3/uL (0.83-4.51); Absolute Neutrophil Count 5.2 X10^3/uL (2.0-7.7); Basophil# 0.07 X10^3/uL; Basophil% 0.9 % (0-1); Eosinophil# 0.33 X10^3/uL; Eosinophils% 4.2 % (0-5); Hematocrit 43.1 % (40-54); Lymphocyte # 1.36 X10^3/ul (0.83-4.51); Lymphocyte % 17.2 % (19-41); Mean Corp Hgb Conc 32.5 g/dL (32-36); Mean Corpuscular Hgb 30.5 pg (27.0-32.0); Mean Corpuscular Volume 93.9 fL (80-94); Mean Platelet Vol. 9.4 fl (6.2-12.0); Monocyte# 0.87 X10^3/uL; NRBC Flagged by Analyzer 0 % (0-5); Neutrophil # 5.22 X10^3/uL (2.7-7.7); Neutrophil % 65.8 % (47-70); Platelet Count 270 K/mm3 (150-450); RBC Distribution Width CV 13.3 % (11.6-14.6); RBC Distribution Width SD 46.2 fl (35.1-43.9); Red Blood Count 4.59 M/mm3 (4.6-6.2); White Blood Count 7.9 K/mm3 (4.4-11.0)
[2023-10-11 09:48] LABS: Vitamin B12 406 pg/mL (211-911); Vitamin D,25 Hydroxy 64.2 ng/mL
[2023-10-11 11:20] LABS: ALB/GLOB Ratio 0.7 RATIO (0.9-2.4); AST(SGOT) 16 U/L (15-37); Alanine Aminotransfer ALT/SGPT 9 U/L (16-61); Albumin, Serum 3.2 g/dL (3.2-5.0); Alkaline Phosphatase 109 U/L (45-117); Anion Gap 7 (5-15); BUN 25 mg/dL (7-18); Calcium,Total 9.2 mg/dL (8.5-10.1); Chloride 102 mmol/L (98-107); Cholesterol 200 mg/dL (200); Creatinine, Serum 1.78 mg/dL (0.70-1.30); EST Glomerular Filtration Rate 39 mL/min (>60); Est Glom Filt Rate - Afr Amer 47 mL/min (>60); Globulin 4.5 g/dL (2.2-4.2); Glucose 184 mg/dL (74-106); High Density Lipoprotein 39 mg/dL; Magnesium 2.7 mg/dL (1.6-2.6); PSA,Total - Annual Screen 5.89 ng/mL (0.00-4.00); Potassium 4.1 mmol/L (3.5-5.1); Protein, Total 7.7 g/dL (6.4-8.2); Sodium Level 135 mmol/L (136-145); Triglycerides 180 mg/dL; Very Low Density Lipoprotein 36 mg/dL (5-40)
[2023-10-12 09:27] LABS: Free T3 2.3 pg/mL (2.18-3.98); T4 Free Direct 1.21 ng/dL (0.76-1.46)
== END | disposition home or self-care (01) ==
PROVIDERS: PCP Internal Medicine; Referring Provider Internal Medicine; Visit Provider Internal Medicine
DX: Z95.810 Presence of automatic (implantable) cardiac defibrillator (principal); I50.9 Heart failure, unspecified; E11.22 Type 2 diabetes mellitus with diabetic chronic kidney disease; E87.5 Hyperkalemia; N18.9 Chronic kidney disease, unspecified; R97.20 Elevated prostate specific antigen [PSA]; Z86.73 Personal history of transient ischemic attack (TIA), and cerebral infarction without residual deficits; I25.10 Atherosclerotic heart disease of native coronary artery without angina pectoris; Z95.1 Presence of aortocoronary bypass graft; Z12.5 Encounter for screening for malignant neoplasm of prostate; E53.8 Deficiency of other specified B group vitamins; I25.810 Atherosclerosis of coronary artery bypass graft(s) without angina pectoris; Z13.220 Encounter for screening for lipoid disorders; R79.89 Other specified abnormal findings of blood chemistry; E55.9 Vitamin D deficiency, unspecified
CPT/HCPCS: 36415; 80053; 80061; 82306; 82607; 83036; 83735; 84153; 84439; 84443; 84481; 85025; G0103

== ENCOUNTER → 2024-01-16 | Outpatient (CLI) | payer MEDICARE, OTHER, SELFPAY ==
[2024-01-16 17:35] LABS: Free T3 2.4 pg/mL (2.18-3.98); PSA,Total- Diagnostic 5.15 ng/mL (0.0-4.0); T4 Free Direct 1.09 ng/dL (0.76-1.46)
== END | disposition home or self-care (01) ==
LOC: LAB 16:08
PROVIDERS: PCP Internal Medicine; Referring Provider Internal Medicine; Visit Provider Internal Medicine
DX: R79.89 Other specified abnormal findings of blood chemistry (principal); N40.0 Benign prostatic hyperplasia without lower urinary tract symptoms; R97.20 Elevated prostate specific antigen [PSA]
CPT/HCPCS: 36415; 84153; 84439; 84443; 84481

== ENCOUNTER → 2024-07-04 | Outpatient (CLI) | payer MEDICARE, OTHER, SELFPAY ==
--- NOTE | 2024-07-04 12:15 | RAD_ITS ---
PROCEDURE: KNEE 3 VIEWS 07/04/2024 REASON FOR EXAM: RIGHT KNEE PAIN TECHNIQUE: 3 view(s) of the right knee; lateral, tunnel and 2 sunrise views, 4 total images COMPARISON: Same day bilateral standing AP view of the knees FINDINGS: Positioning of the sunrise views limits the evaluation. No fracture, dislocation or joint effusion. The joint spaces appear within limits. Mild osteoarthrosis medial compartment. Enthesophyte formation quadriceps side of the patella. Vascular calcifications noted. RAD/Knee 3 Views IMPRESSION: Fairly mild medial compartment osteoarthrosis. Reading Location: [id number]
--- NOTE | 2024-07-04 12:15 | RAD_ITS ---
PROCEDURE: CHEST PA AND LATERAL 07/04/2024 REASON FOR EXAM: CHF TECHNIQUE: Frontal and lateral views of the chest. COMPARISON: 01/19/2021 FINDINGS: There is now a multi lead AICD. Previous CABG again noted. No significant interval change in appearance of the lungs with again bilateral background of chronic interstitial change suggested. No pleural effusion. Atherosclerotic changes again seen at the aortic arch. RAD/Chest PA and Lateral IMPRESSION: No evidence of acute disease. There is now a multilead AICD present. No significant interval change in appearance of the lungs with the appearance o f chronic interstitial changes suggested. Reading Location: [id number]
--- NOTE | 2024-07-04 12:15 | RAD_ITS ---
PROCEDURE: KNEES STANDING AP BILATERAL 07/04/2024 REASON FOR EXAM: KNEE PAIN TECHNIQUE: Bilateral AP standing view of the knees, single image FINDINGS: Suggestion of mild medial compartment joint space narrowing left knee. Otherwise the right medial and lateral and left lateral compartments appear within limits. No evidence of fracture. Surgical clips seen along the medial aspect of the left leg soft tissues. RAD/Knees Standing AP Bilateral IMPRESSION: Suggestion of mild medial compartment joint space narrowing left knee. Reading Location: [id number]
[2024-07-04 13:48] LABS: Magnesium 2.8 mg/dL (1.5-2.2); PSA,Total- Diagnostic 4.84 ng/mL (0.00-4.00); Pro- Brain NATRIURETIC PEPTIDE 4255 pg/mL (<=1800)
[2024-07-04 13:53] LABS: ALB/GLOB Ratio 0.9 RATIO (0.9-2.4); AST(SGOT) 21 U/L (<=37); Alanine Aminotransfer ALT/SGPT < 5 U/L (<=46); Albumin, Serum 3.7 g/dL (3.4-4.8); Alkaline Phosphatase 116 U/L (40-129); Anion Gap 12 (5-15); BUN 34 mg/dL (4-19); BUN/Creat Ratio 17.6 RATIO (10-20); Calcium,Total 9.1 mg/dL (7.6-11.0); Carbon Dioxide 27.1 mmol/L (21.0-32.0); Chloride 95 mmol/L (98-108); Creatinine, Serum 1.94 mg/dL (0.70-1.20); EST Glomerular Filtration Rate 34 (>60); Globulin 4.4 g/dL (2.2-4.2); Glucose 251 mg/dL (70-99); Potassium 3.8 mmol/L (3.3-5.1); Protein, Total 8.1 g/dL (5.9-8.4); Sodium Level 134 mmol/L (133-145)
== END | disposition home or self-care (01) ==
LOC: LAB 11:48
PROVIDERS: PCP Internal Medicine; Referring Provider Internal Medicine; Visit Provider Internal Medicine
DX: E87.5 Hyperkalemia (principal); I50.9 Heart failure, unspecified; N18.9 Chronic kidney disease, unspecified; R79.89 Other specified abnormal findings of blood chemistry; N40.0 Benign prostatic hyperplasia without lower urinary tract symptoms; R97.20 Elevated prostate specific antigen [PSA]; M25.561 Pain in right knee; R09.89 Other specified symptoms and signs involving the circulatory and respiratory systems; M25.562 Pain in left knee; Z95.1 Presence of aortocoronary bypass graft
CPT/HCPCS: 36415; 71046; 73562; 73565; 80053; 83735; 83880; 84153; 84443

== ENCOUNTER → 2024-07-12 | Outpatient (CLI) | payer MEDICARE, OTHER, SELFPAY ==
[2024-07-12 15:10] LABS: Absolute Lymphocyte Count 1.41 X10^3/uL (0.83-4.51); Absolute Neutrophil Count 5.7 X10^3/uL (2.0-7.7); Basophil# 0.06 X10^3/uL; Basophil% 0.7 % (0-1); Eosinophil# 0.42 X10^3/uL; Eosinophils% 4.8 % (0-5); Hemoglobin 12.4 g/dL (13.0-16.5); Lymphocyte # 1.41 X10^3/ul (0.83-4.51); Mean Corp Hgb Conc 33.5 g/dL (32-36); Mean Corpuscular Hgb 30.5 pg (27.0-32.0); Mean Corpuscular Volume 91.1 fL (80-94); Mean Platelet Vol. 8.7 fl (6.2-12.0); Monocyte# 1.12 X10^3/uL; Monocyte% 12.7 % (0-10); NRBC Flagged by Analyzer 0 % (0-5); Neutrophil # 5.73 X10^3/uL (2.7-7.7); Neutrophil % 64.8 % (47-70); Platelet Count 315 K/mm3 (150-450); RBC Distribution Width CV 13.3 % (11.6-14.6); Red Blood Count 4.06 M/mm3 (4.6-6.2); White Blood Count 8.8 K/mm3 (4.4-11.0)
[2024-07-12 16:00] LABS: Anion Gap 14 (5-15); BUN 31 mg/dL (4-19); BUN/Creat Ratio 16.6 RATIO (10-20); Carbon Dioxide 27.1 mmol/L (21.0-32.0); Chloride 93 mmol/L (98-108); Creatinine, Serum 1.87 mg/dL (0.70-1.20); EST Glomerular Filtration Rate 35 (>60); Glucose 179 mg/dL (70-99); Potassium 3.7 mmol/L (3.3-5.1); Pro- Brain NATRIURETIC PEPTIDE 4679 pg/mL (<=1800); Sodium Level 134 mmol/L (133-145)
== END | disposition home or self-care (01) ==
LOC: LAB 14:27
PROVIDERS: PCP Internal Medicine; Referring Provider Nurse Practitioner Gerontology; Visit Provider Nurse Practitioner Gerontology
DX: R06.00 Dyspnea, unspecified (principal); I25.5 Ischemic cardiomyopathy
CPT/HCPCS: 36415; 80048; 83880; 85025

== ENCOUNTER 2024-07-26 08:54 | Observation (INO) | payer MEDICARE, OTHER, SELFPAY ==
[2024-07-26] VITALS (12 sets, daily range): BP systolic 104–116; BP diastolic 52–59; PULSE 63–93; RESP 14–21; TEMP 36.6–36.8; O2SAT 94–99; BMI 28.0; BMI 27.7
--- NOTE | 2024-07-26 09:04 | ED.VIS.DYS ---
HPI History of Present Illness Chief Complaint: Shortness of Breath Informant: patient Onset/Context/Timing Onset: Month(s) (1) Context: gradual Timing: Continuous Quality: Positive for Dyspnea on exertion Worsened by: Exertion Relieved by: Rest Associated Symptoms cough, subjective and chills; Negative for rhinorrhea, post nasal drip, ear pain, fever, sore throat, sweats, clear sputum, white sputum, yellow sputum or green sputum Chest Pain: Positive for Intermittent and Sharp Narrative Narrative: Patient presents with shortness of breath that has been getting worse over the past month. Patient states he was told that he is filling up with water. Patient is on 80 mg of Lasix. states patient was recently started on a second diuretic but she does not know the name of it. Patient admits to slight intermittent chest pain. Patient states it only last 1 to 2 seconds. Patient states it is sharp. Patient states his breathing is worse with any exertion and better with rest. states patient has had a slight cough but denies any sputum production. Patient admits to some subjective chills. 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 Carotid artery stenosis Atherosclerotic heart disease of [place] coronary artery without angina pectoris Type 2 diabetes mellitus Overweight Skin cancer Home Medications ?Medication ?Instructions ?Recorded ?Last Taken ?Type aspirin 81 mg tablet,delayed 81 mg PO DAILY 03/11/20 07/26/24 History release (Adult Aspirin Regimen) Handicap Placcard #1 ea 10/13/21 Unknown Rx cholecalciferol (vitamin D3) 125 125 mcg PO DAILY 06/22/23 07/25/24 History mcg (5,000 unit) tablet carvedilol 25 mg tablet 25 mg PO BID #180 tabs 10/11/23 07/26/24 Rx glimepiride 1 mg tablet 1 mg PO DAILY #90 tabs 10/20/23 07/25/24 Rx nitroglycerin 0.4 mg sublingual 0.4 mg sublingual Q5-15M PRN chest 10/24/23 Unknown Rx tablet pain #25 tabs dapagliflozin propanediol 10 mg 10 mg PO DAILY #90 tabs 12/01/23 07/25/24 Rx tablet (Farxiga) loperamide 2 mg tablet (Imodium 2 mg PO TID PRN loose stool #20 03/20/24 Unknown Rx A-D) tabs furosemide 40 mg tablet 80 mg (2 x 40 mg) PO BID #180 tabs 07/13/24 07/25/24 Rx spironolactone 25 mg tablet 25 mg PO QDAY #30 tabs 07/13/24 07/26/24 Rx Allergy/AdvReac Type Severity Reaction Status Date / Time amiodarone AdvReac Severe decrease Verified 07/26/24 08:58 DLCO atorvastatin AdvReac insomnia Verified 07/26/24 08:58 Family History Other Myocardial infarction Surgical History History of left heart catheterization (01/26/21) History of coronary artery stent placement (07/19/18) H/O coronary artery bypass surgery (1999) Social History Smoking Status: Former smoker alcohol intake: never substance use type: does not use what type of physical activity do you participate in: none ROS ROS ED Constitutional Constitutional ED: Reports chills; Denies fever(s) Eyes Eyes: Denies blurry vision or change in vision ENT ENT ED: Denies rhinorrhea or sore throat Cardiovascular Cardiovascular: Reports chest pain; Denies palpitations Respiratory/Chest Respiratory/Chest: Reports cough and dyspnea Gastrointestinal Gastrointestinal: Denies nausea or vomiting Genitourinary Genitourinary ED: Denies dysuria or hematuria Musculoskeletal Musculoskeletal: Denies back pain or neck pain Integumentary Denies abscess or rash Neurologic Neurologic: Denies headache(s) or weakness Allergic/Immunologic Allergic/Immunologic ED: Denies mouth swelling or urticaria EXAM Physical Exam Const Vital Signs: 07/26/24 08:56 07/26/24 09:21 07/26/24 09:21 Temperature 97.8 F Temperature Source Oral Pulse Rate 69 Respiratory Rate 18 Respiratory Effort Short of Breath Respiratory Depth Normal Respiratory Pattern Normal Blood Pressure 116/52 L Blood Pressure Mean 73 Pulse Ox 96 Oxygen Delivery Method Room Air Room Air Room Air 07/26/24 10:57 07/26/24 12:00 Temperature Temperature Source Pulse Rate 63 93 Respiratory Rate 16 21 H Respiratory Effort Respiratory Depth Respiratory Pattern Blood Pressure 104/55 L 111/59 L Blood Pressure Mean 71 75 Pulse Ox 96 95 Oxygen Delivery Method Room Air Positive well nourished and well developed General Appearance ED: well developed and NAD HEENT Reports moist mucous membranes atraumatic Neck supple and no JVD Resp normal respiratory effort Auscultation: rales bilateral lower Cardio regular rate and regular rhythm GI non-tender and non-distended Palpation: soft Extremity normal to inspection Extremity Narrative: There is trace edema of the lower extremities bilaterally. There is no calf tenderness. General Extremety ED: Negative for tenderness Neuro oriented x3, CN's II-XII intact bilaterally and no sensory deficits noted Helder Coma Scale: document GCS findings Spontaneous Obeys Commands Oriented 15 Sensorium / Orientation: alert Speech: speech normal Motor Exam: strength 5/5 throughout Psych mental status grossly normal MDM MDM MDM Narrative Medical decision making narrative: Differential diagnosis includes congestive heart failure, pneumonia, bronchitis, cardiac dysrhythmia, cardiac ischemia, electrolyte abnormality, and anxiety. EKG will be obtained to assess for cardiac dysrhythmia and cardiac ischemia. Chest x-ray will be obtained to assess for pneumonia and bronchitis. CBC will be obtained to assess for leukocytosis and anemia. Basic metabolic profile will be obtained to assess for electrolyte abnormality and renal function. High-sensitivity troponin will be obtained to assess for cardiac ischemia. 2-hour repeat high-sensitivity troponin will be obtained to assess for ongoing cardiac ischemia. BNP will be obtained to assess for congestive heart failure. History & Record Review Additional record(s) reviewed:: Prior outpatient record and Prior labs Lab Data Attestation: I reviewed the patient's lab results. Lab results narrative: CBC was reviewed and was within normal limits. Basic metabolic profile was reviewed. Sodium was slightly low at 130 and chloride was 89. BUN was slightly elevated at 44 and creatinine was 2.2. These are slightly increased from previous results. Glucose was elevated at 344. Anion gap was normal. CO2 was normal. High-sensitivity troponin was reviewed and was slightly elevated at 28. 2-hour repeat high-sensitivity troponin was reviewed and was slightly elevated at 26. BNP was reviewed and was elevated at 5176. Labs: Laboratory Results - last 24 hr 07/26/24 07/26/24 09:18 11:21 WBC 9.5 RBC 4.55 L Hgb 14.1 Hct 40.6 MCV 89.2 MCH 31.0 MCHC 34.7 RDW Std Deviation 43.0 RDW Coeff of Trinity 13.2 Plt Count 311 MPV 9.0 Immature Gran % (Auto) 1.300 H Neut % (Auto) 71.9 H Lymph % (Auto) 10.1 L [place] % (Auto) 10.7 H Eos % (Auto) 5.3 H Baso % (Auto) 0.7 Absolute Neuts (auto) 6.8 Absolute Lymphs (auto) 0.96 Nucleated RBC % 0 Sodium 130 L Potassium 4.7 Chloride 89 L Carbon Dioxide 28.0 Anion Gap 14 BUN 44 H Creatinine 2.22 H Estim Creat Clear Calc 23.64 L Est GFR (MDRD) Non-Af 29 L BUN/Creatinine Ratio 19.6 Glucose 344 H Calcium 9.6 Troponin T High Sens 28 H Troponin T Hi Sens 2 Hr 26 H NT pro BNP II 5176 H Radiography Chest X-Ray - ED: 2 View, Read by ED Physician and Read by Radiologist Diagnostic Testing: Clinical Impression(s) from Imaging Studies Chest X-Ray 07/26/24 09:38 IMPRESSION: No acute consolidating airspace disease. Left base chronic pleural-parenchymal changes appears stable Reading Location: [facility] PA and lateral chest x-ray was obtained. There are 2 views. On my independent interpretation, lung castellanos show some chronic pulmonary vascular congestion. There is no acute infiltrate. There is cardiomegaly. Pacemaker/defibrillator was noted to be in place. Bony thorax is normal. Radiologist also interpreted the x-ray and agrees. EKG Initial EKG: Attestation: I personally reviewed and interpreted this EKG as follows: Interpretation: Paced (75) and LBBB Comments: EKG was obtained. On my independent interpretation, this shows an atrial sensed paced rhythm with a rate of 75. [place] interval was prolonged at 312 ms. QRS was prolonged at 194 ms. QTc interval was slightly prolonged at 578 ms. There is left axis deviation at -64. There is a left bundle branch block pattern noted. Prior EKG tracings: available for review Prior: Unchanged Management Discussion w/another healthcare provider: Hospitalist and Behavioral Assistant Treatment and Re-Evaluation :: Patient was given aspirin here. Patient was advised of his findings. Case was discussed with Dr. Harrell from cardiology. He recommended admission to the hospital and starting patient on IV Lasix. Case was discussed with the hospitalist. He will admit the patient to PCU for observation. Patient and family understood and were agreeable with the plan. All questions were answered. Discharge Plan Triage Chief Complaint: Shortness of Breath ED Provider: Virgil Felder Dx/Rx/DC Orders Clinical Impression: CHF (congestive heart failure), Chronic kidney disease, Type 2 diabetes mellitus Prescriptions: No Action aspirin [Adult Aspirin Regimen] 81 mg tablet,delayed release (DR/EC) 81 mg PO DAILY (DME) Handicap Placcard See Rx Instructions .Route .MEDSUPPLY Qty: 1 0RF Rx Instructions: Dx: CHF Exp: 10/13/2026 cholecalciferol (vitamin D3) 125 mcg (5,000 unit) tablet 125 mcg PO DAILY carvedilol 25 mg tablet 25 mg PO BID Qty: 180 3RF Rx Instructions: must administer with a meal/food glimepiride 1 mg tablet 1 mg PO DAILY Qty: 90 3RF nitroglycerin 0.4 mg tablet, sublingual 0.4 mg sublingual Q5-15M PRN (Reason: chest pain) Qty: 25 3RF Rx Instructions: do not exceed 3 doses per episode Farxiga 10 mg tablet 10 mg PO DAILY Qty: 90 3RF loperamide [Imodium A-D] 2 mg tablet 2 mg PO TID PRN (Reason: loose stool) Qty: 20 0RF spironolactone 25 mg tablet 25 mg PO QDAY Qty: 30 6RF furosemide 40 mg tablet 80 mg PO BID Qty: 180 3RF Primary Care Provider: Heather Morrissey Referrals: Heather Morrissey MD [Primary Care Provider] - Print Language: German Disposition Disposition: Acute Care Hospital [facility]
--- NOTE | 2024-07-26 09:21 | EKG12_ITS ---
Test Reason : general Blood Pressure : */* mmHG Vent. Rate : 67 BPM Atrial Rate : 67 BPM P-R Int : 334 ms QRS Dur : 192 ms QT Int : 542 ms P-R-T Axes : 39 -43 147 degrees QTcB Int : 572 ms Atrial-sensed ventricular-paced rhythm with prolonged AV conduction Abnormal ECG When compared with ECG of 26-Jul-2024 09:32, MANUAL COMPARISON REQUIRED DATA IS UNCONFIRMED Confirmed by FARHANA KANG, GARFIELD ([id number]), writer editor TAMANNA SUN ([id number]) on 07/31/2024 6:39:23 AM Referred By: Confirmed By: GARFIELD DELCID MD
[2024-07-26 09:31] LABS: Absolute Lymphocyte Count 0.96 X10^3/uL (0.83-4.51); Absolute Neutrophil Count 6.8 X10^3/uL (2.0-7.7); Basophil# 0.07 X10^3/uL; Basophil% 0.7 % (0-1); Eosinophils% 5.3 % (0-5); Hematocrit 40.6 % (40-54); Hemoglobin 14.1 g/dL (13.0-16.5); Lymphocyte # 0.96 X10^3/ul (0.83-4.51); Lymphocyte % 10.1 % (19-41); Mean Corp Hgb Conc 34.7 g/dL (32-36); Mean Corpuscular Volume 89.2 fL (80-94); Monocyte# 1.01 X10^3/uL; Monocyte% 10.7 % (0-10); NRBC Flagged by Analyzer 0 % (0-5); Neutrophil # 6.81 X10^3/uL (2.7-7.7); Neutrophil % 71.9 % (47-70); Platelet Count 311 K/mm3 (150-450); RBC Distribution Width CV 13.2 % (11.6-14.6); Red Blood Count 4.55 M/mm3 (4.6-6.2); White Blood Count 9.5 K/mm3 (4.4-11.0)
[2024-07-26] MEDS: Aspirin 81 MG TAB.CHEW 324 MG PO (09:37)
--- NOTE | 2024-07-26 09:38 | RAD_ITS ---
PROCEDURE: CHEST PA AND LATERAL 07/26/2024 REASON FOR EXAM: CHEST PAIN TECHNIQUE: CHEST PA AND LATERAL COMPARISON: Chest radiograph July 04, 2024 FINDINGS: Hardware: Plan chronic defibrillator mediastinal vascular clips suggest prior CABG. Heart: Size Mediastinum: Contours are normal Lungs: Minimal fibrosis. Pleural-parenchymal changes in the left base appears stable compared to June 26 Bones: Unremarkable. RAD/Chest PA and Lateral IMPRESSION: No acute consolidating airspace disease. Left base chronic pleural-parenchymal changes appears stable Reading Location[facility]
[2024-07-26 09:53] LABS: Anion Gap 14 (5-15); BUN 44 mg/dL (4-19); BUN/Creat Ratio 19.6 RATIO (10-20); Calcium,Total 9.6 mg/dL (7.6-11.0); Chloride 89 mmol/L (98-108); Creatinine, Serum 2.22 mg/dL (0.70-1.20); EST Glomerular Filtration Rate 29 (>60); Estimated Creatinine Clearance 23.64 ml/min (50-250); Glucose 344 mg/dL (70-99); Potassium 4.7 mmol/L (3.3-5.1); Pro- Brain NATRIURETIC PEPTIDE 5176 pg/mL (<=1800); Sodium Level 130 mmol/L (133-145); Troponin T High Sensitivity 28 ng/L (<=22)
[2024-07-26 11:47] LABS: Troponin T High Sens 2 HR 26 ng/L (<=22)
[2024-07-26] MEDS: Furosemide 40 MG/4 ML Vial IV (12:57)
--- NOTE | 2024-07-26 13:08 | HP.PCM.HOS_ITS ---
HPI - General General Date of Admission: 07/26/24 HPI Narrative EL TERRY, is a 84 M who presents to the hospital with increasing exertional dyspnea, he feels great at rest but notices that he is getting more short of breath with activity. He has been having to have increased number and duration of breaks with activity. 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 twice daily to 80 mg p.o. twice daily and then about a week or 2 after that started him on Aldactone 25 mg p.o. daily. He presented to the hospital from what appears to be shortness of breath with activity but also his was very concerned with his symptoms and the fact that the medications were not improving. Oddly they were not aware of potentially needing to be on a fluid restriction with such severe heart failure and so he has not been restricting his p.o. intake at all. proBNP is elevated but it has been elevated and he is not hypoxic either at rest or with activity. 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 Carotid artery stenosis Atherosclerotic heart disease of [place] coronary artery without angina pectoris Type 2 diabetes mellitus Overweight Skin cancer Home Medications ?Medication ?Instructions ?Recorded ?Last Taken ?Type aspirin 81 mg tablet,delayed 81 mg PO DAILY 03/11/20 0 07/26/24 History release (Adult Aspirin Regimen) Handicap Placcard #1 ea 10/13/21 Unknown Rx cholecalciferol (vitamin D3) 125 125 mcg PO DAILY 06/0707/25/24 History mcg (5,000 unit) tablet carvedilol 25 mg tablet 25 mg PO BID #180 tabs 10/1007/26/24 Rx glimepiride 1 mg tablet 1 mg PO DAILY #90 tabs 10/1907/25/24 Rx nitroglycerin 0.4 mg sublingual 0.4 mg sublingual Q5-1 5M PRN chest 10/24/23 Unknown Rx tablet pain #25 tabs dapagliflozin propanediol 10 mg 10 mg PO DAILY #90 tab s 12/01/23 07/25/24 Rx tablet (Farxiga) loperamide 2 mg tablet (Imodium 2 mg PO TID PRN loose stool #20 03/20/24 Unknown Rx A-D) tabs furosemide 40 mg tablet 80 mg (2 x 40 mg) PO BID #18 0 tabs 07/13/24 07/25/24 Rx spironolactone 25 mg tablet 25 mg PO QDAY #30 tabs 08/0107/26/24 Rx Allergy/AdvReac Type Severity Reaction Status Date / Time amiodarone AdvReac Severe decrease Verified 07/26/24 08:58 DLCO atorvastatin AdvReac insomnia Verified 07/26/24 08:58 Family History (Reviewed 07/12/24 @ 14:05 by Yara Calero REGISTERED VETERINARY TECHNICIAN, REGISTERED VETERINARY TECHNICIAN-C) Other Myocardial infarction Surgical History History of left heart catheterization (01/26/21) History of coronary artery stent placement (07/19/18) H/O coronary artery bypass surgery (1999) Social History Smoking Status: Former smoker alcohol intake: never substance use type: does not use what type of physical activity do you participate in: none ROS Constitutional Constitutional: Denies chills, fatigue, fever(s) or malaise Eyes Eyes: Denies blurry vision ENT HEENT: Denies headache(s) or nasal discharge Cardiovascular Cardiovascular: Reports dyspnea on exertion; Denies chest pain or syncope Respiratory/Chest Respiratory/Chest: Denies cough, shortness of breath at rest or shortness of breath with exertion Gastrointestinal Gastrointestinal: Denies constipation, diarrhea, nausea or vomiting Genitourinary Genitourinary: Denies dysuria Neurologic Neurologic: Denies focal weakness, numbness or tremor(s) Psychiatric Psychiatric: Denies anxiety or depression Vital Signs Vital Signs Vital Signs: 07/26/24 08:56 07/26/24 09:21 07/26/24 09:21 Temperature 97.8 F Temperature Source Oral Pulse Rate 69 Respiratory Rate 18 Respiratory Effort Short of Breath Respiratory Depth Normal Respiratory Pattern Normal Blood Pressure 116/52 L Blood Pressure Mean 73 Pulse Ox 96 Oxygen Delivery Method Room Air Room Air Room Air 07/26/24 10:57 07/26/24 12:00 Temperature Temperature Source Pulse Rate 63 93 Respiratory Rate 16 21 H Respiratory Effort Respiratory Depth Respiratory Pattern Blood Pressure 104/55 L 111/59 L Blood Pressure Mean 71 75 Pulse Ox 96 95 Oxygen Delivery Method Room Air Weight Weight: 163 lb 4 oz Body Mass Index (BMI) 28.0 Physical Exam Narrative General: Alert, Oriented x3, Cooperative, No apparent distress HEENT: Atraumatic, PERRLA, EOMI, Normocephalic, hard of hearing Oral: Moist Mucosa Neck: Supple, No JVD Lungs: Diminished, Normal air movement, No rhonchi, No wheeze, fine crackles at bases Cardiovascular: Regular rate, Regular Rhythm, Normal S1, Normal S2, No murmurs Abdomen: Soft, Non Tender, Non-Distended, No Hepato-splenomegaly Extremities: No edema, Capillary Refill Less than 3 Seconds Skin: No rashes, No breakdown Musculoskeletal: No Tenderness to Palpation of Joints or Extremities Neurological: No focal neurological deficits, moves all extremities, Sensory exam intact to light touch and pain Psych/Mental Status: Normal Affect, Appropriate Results Lab / Micro Data 07/26/24 09:18 07/26/24 09:18 Labs: Laboratory Results - last 24 hr 07/26/24 09:18: WBC 9.5, RBC 4.55 L, Hgb 14.1, Hct 40.6, MCV 89.2, MCH 31.0, MCHC 34.7, RDW Std Deviation 43.0, RDW Coeff of Trinity 13.2, Plt Count 311, MPV 9.0, Immature Gran % (Auto) 1.300 H, Neut % (Auto) 71.9 H, Lymph % (Auto) 10.1 L , [place] % (Auto) 10.7 H, Eos % (Auto) 5.3 H, Baso % (Auto) 0.7, Absolute Neuts (auto) 6.8, Absolute Lymphs (auto) 0.96, Nucleated RBC % 0, Sodium 130 L, Potassium 4.7, Chloride 89 L, Carbon Dioxide 28.0, Anion Gap 14, BUN 44 H, C reatinine 2.22 H, Estim Creat Clear Calc 23.64 L, Est GFR (MDRD) Non-Af 29 L, BUN/Creatinine Ratio 19.6, Glucose 344 H, Calcium 9.6, Troponin T High Sens 28 H , NT pro BNP II 5176 H 07/26/24 11:21: Troponin T Hi Sens 2 Hr 26 H Imaging Radiology Impression Chest X-Ray 07/26/24 09:38 IMPRESSION: No acute consolidating airspace disease. Left base chronic pleural-parenchymal changes appears stable Reading [facility] Assessment & Plan Assessment/Plan (1) CHF (congestive heart failure): PLAN: Plan 1. Increasing exertional dyspnea in the setting of chronic systolic CHF/essential HTN/HLD/CAD status post CABG and stent/status post pacemaker placement for nonsustained paroxysmal supraventricular tachycardia ? Continue with his home blood pressure medications ? Will continue with his home Lasix and Aldactone as his renal function is slightly worse today, does not meet criteria for MOISE but his baseline creatinine is 2 and he is currently 2.22. ? Continue with Farxiga for his heart failure and his diabetes ? Will add a fluid restriction ? Will repeat a limited echo to evaluate his PASP and EF, his last echocardiogram had an EF of 25% with a PASP of 36 mmHg and this was in 2022 ? Will consult cardiology for any medication changes they would like to make prior to discharge ? Will consult palliative care for outpatient evaluation and follow-up ? I had a 20-minute discussion on advance care planning explaining the difference between palliative care and hospice care especially given the progression of his heart failure ? Continue with his statin 2. DM2 ? Hold his glimepiride but continue with his Farxiga ? Sliding scale insulin ? Accu-Cheks ACHS ? Will monitor and make adjustments as necessary DVT: Heparin Charges/Coding Multi Select Codes Visit Charges Visit Charges: 91194 Init Hosp L2 Hospitalists' Procedures Procedures: 50768 Advncd Care Plan 30 Min
[2024-07-26 13:41] LABS: Troponin T High Sens 4 HR 25 ng/L (<=22)
--- NOTE | 2024-07-26 14:38 | CASEMGMT ---
Care Management Face to Face with patient for initial transition planning/care coordination assessment in the ED.? 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 Patient alert and oriented. Patient willing to participate in assessment and is able to answer all questions appropriately.? Care providers, pharmacy, and demographics verified. Admitting Diagnosis: ?CHF Other diagnosis history: ?cardiomyopathy, biventricular ICD, Type 2 diabetes, skin cancer PCP: ?Ghanshyam Specialists: ?[facility] Preferred Pharmacy: [facility] Insurance: ?Medicare Prescription Benefit: yes Living Will/HPOA: ?patient states both LW and HPOA completed LNOK: ? Living Arrangements: ?Patient lives with in a 3 story home.? Patient reports to being independent with ADLs and IADLs Transportation: patient drives DME: none HHC: none SNF/Rehab: none Community Resources: ?none Behavioral Health History: none Patient goals: Patient wishes to discharge home, denies need for home health care at this time. Patient denies any further needs or concerns at this time. Disposition Plan: admission to acute; RN CM/SW to follow for discharge planning needs that may arise. 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
--- NOTE | 2024-07-26 15:28 | ECHOLC_ITS ---
Reason For Study Reason For Study: CHF Procedure This was a limited 2D transthoracic echocardiogram. The study was technically difficult. Due to suboptiaml apical imaging windows. Contrast injection was performed. Exam performed portable in patient room. Left Ventricle Normal LV size. The estimated ejection fraction is 30 %. There is evidence of diastolic dysfunction. There is moderate to severe global hypokinesis of the left ventricle. Right Ventricle Normal RV size. ICD or pacer leads identified within the right ventricle. Normal systolic function. Atria The left atrium is moderately enlarged. Normal right atrium. ICD or pacer leads identified within the right atrium. No doppler evidence for ASD. Mitral Valve There is no mitral valve stenosis. No mitral valve insufficiency. Tricuspid Valve There is no tricuspid stenosis. Trivial tricuspid valve insufficiency. Pulmonary artery systolic pressure is 40 mmHg. Aortic Valve Trisinus/trileaflet aortic valve. There is no aortic stenosis. No aortic valve insufficiency. Pulmonic Valve There is no pulmonic valvular stenosis. No pulmonic valve insufficiency. Great Vessels Normal sized aortic root. Pericardium/Pleural No pericardial effusion. Medication Diluted definity 2.0ml given slow IV push to enhance endocardial definition. MMode/2D Measurements & Calculations LVIDd: 5.6 cm IVSd: 0.80 cm Ao root diam: 3.3 cm LVIDs: 4.9 cm LVPWd: 0.90 cm RVDd: 3.0 cm FS: 13.0 % LAV(MOD-bp): 86.2 ml LVAd ap4: 36.9 cm2 SV(MOD-sp4): 35.8 ml LAV(MOD-bp) Indexed: 48.0 ml/m2 LVLd ap4: 8.7 cm SI(MOD-sp4): 20.0 ml/m2 LAV(MOD-sp2): 78.5 ml EDV(MOD-sp4): 133.5 ml LAV(MOD-sp4): 84.7 ml EDV(sp4-el): 132.2 ml LVAs ap4: 31.0 cm2 LVLs ap4: 8.4 cm ESV(MOD-sp4): 97.7 ml ESV(sp4-el): 97.5 ml EF(MOD-sp4): 26.8 % EF(sp4-el): 26.3 % SV(sp4-el): 34.7 ml LA A4 area: 25.2 cm2 LA dimension(2D): 4.7 cm RA A4 area: 11.8 cm2 Doppler Measurements & Calculations TR max warner: 304.2 cm/sec TR max P.0 mmHg ECHO/Echo Limited w/Contrast Interpretation Summary The estimated ejection fraction is 30 %. There is moderate to severe global hypokinesis of the left ventricle. There is evidence of diastolic dysfunction. The left atrium is moderately enlarged. Ordering Physician: Lewis Sifuentes Referring Physician: Heather Morrissey Performed By: Mandi Orr RDCS, RVT
[2024-07-26] MEDS: Heparin Injection (Vial) 5,000 UNIT/ML VIAL 5000 UNIT SC ×2 (16:44→23:28)
[2024-07-26] MEDS: Insulin Lispro 100 UNIT/ML INSULN.PEN SC ×2 (16:49→23:31)
[2024-07-26] MEDS: Carvedilol 25 MG Tablet PO (16:50)
[2024-07-26 17:14] LABS: Bedside Glucose 234 mg/dL (74-106)
[2024-07-26] MEDS: Furosemide 80 MG Tablet PO (17:56)
[2024-07-26 23:50] LABS: Bedside Glucose 210 mg/dL (74-106)
[2024-07-27 04:00] VITALS: BP 115/82; PULSE 70; RESP 15; TEMP 36.7; O2SAT 93
[2024-07-27 05:30] VITALS: BMI 27.6
[2024-07-27] MEDS: Insulin Lispro 100 UNIT/ML INSULN.PEN SC ×2 (06:45→11:30)
[2024-07-27] MEDS: Heparin Injection (Vial) 5,000 UNIT/ML VIAL 5000 UNIT SC (06:45)
[2024-07-27 06:57] LABS: Absolute Neutrophil Count 4.7 X10^3/uL (2.0-7.7); Basophil# 0.05 X10^3/uL; Basophil% 0.7 % (0-1); Eosinophil# 0.59 X10^3/uL; Eosinophils% 7.8 % (0-5); Hematocrit 39.2 % (40-54); Hemoglobin 13.8 g/dL (13.0-16.5); Lymphocyte % 14.5 % (19-41); Mean Corp Hgb Conc 35.2 g/dL (32-36); Mean Corpuscular Hgb 31.6 pg (27.0-32.0); Mean Corpuscular Volume 89.7 fL (80-94); Mean Platelet Vol. 8.8 fl (6.2-12.0); Monocyte# 1.03 X10^3/uL; Monocyte% 13.6 % (0-10); NRBC Flagged by Analyzer 0 % (0-5); Neutrophil # 4.74 X10^3/uL (2.7-7.7); Neutrophil % 62.2 % (47-70); Platelet Count 306 K/mm3 (150-450); RBC Distribution Width CV 13.2 % (11.6-14.6); RBC Distribution Width SD 43.6 fl (35.1-43.9); Red Blood Count 4.37 M/mm3 (4.6-6.2); White Blood Count 7.6 K/mm3 (4.4-11.0)
[2024-07-27 07:07] LABS: Bedside Glucose 173 mg/dL (74-106)
[2024-07-27 07:27] LABS: Anion Gap 13 (5-15); BUN 43 mg/dL (4-19); Calcium,Total 9.4 mg/dL (7.6-11.0); Carbon Dioxide 27.1 mmol/L (21.0-32.0); Chloride 93 mmol/L (98-108); Creatinine, Serum 2.05 mg/dL (0.70-1.20); EST Glomerular Filtration Rate 32 (>60); Estimated Creatinine Clearance 25.51 ml/min (50-250); Glucose 186 mg/dL (70-99); Sodium Level 133 mmol/L (133-145)
--- NOTE | 2024-07-27 07:49 | PCM.CONS.C ---
Assessment & Plan Assessment/Plan (1) CHF (congestive heart failure): QUALIFIERS: Heart failure type: systolic Heart failure chronicity: acute on chronic Qualified Code(s): I50.23 - Acute on chronic systolic (congestive) heart failure PLAN: Patient admitted with progressive dyspnea on exertion. The patient does not have significant symptoms sitting at rest. He denies any PND orthopnea denies any lower extremity edema. His BNP however is elevated above his baseline at 5100. This is despite his diuretics being increased over the last week in his home environment. The patient does have what appears to be dry rales throughout his lung feels concentrated more in the lower half of his posterior lung castellanos. He does have a history of an depressed DLCO felt to be related to amiodarone exposure in the past. I feel that his dyspnea on exertion is probably multifactorial. Would recommend that he get an ambulatory O2 saturation done and if this is below 88% should be considered for home oxygen therapy. Will also try to gently add additional afterload reduction therapy with hydralazine and nitrates given the patient's labile renal function. JORDEN and ARB therapy have been avoided in the past. The patient is tolerating spironolactone 25 mg daily. Potassium and electrolytes are within normal ranges. (2) Chronic kidney disease: QUALIFIERS: Chronic kidney disease stage: stage 3 (moderate) Chronic kidney disease stage 3 subtype: stage 3b (GFR 30-44) Qualified Code(s): N18.32 - Chronic kidney disease, stage 3b PLAN: Patient has a history of chronic renal insufficiency. His creatinine today is pretty much at baseline at 2.05. Creatinine clearance is 32. (3) Biventricular ICD (implantable cardioverter-defibrillator) in place: PLAN: Patient had a EDUCATION FACULTY MEMBER-D implant done in 2020. From the most recent device check Chem-7 it appears the pacer is only pacing 3% of the time in the RA and 23% of time in the ventricle. I have tried to investigate this but have been unable to find documentation of this device pacing the LV. Will investigate the mode of operation of this device with the [facility] device [facility]. (4) Atherosclerosis of coronary artery bypass graft without angina pectoris: QUALIFIERS: [place] vs. transplanted heart: [place] heart Qualified Code(s): I25.810 - Atherosclerosis of coronary artery bypass graft(s) without angina pectoris PLAN: Patient denies any significant angina at this point in time. His last catheterization April 2020 was documented above in the HPI. (5) Nonsustained paroxysmal supraventricular tachycardia: PLAN: Patient has had no SVT documented on his last device check July 14, 2024. This was a remote check. PLAN: Plan 1. Will add hydralazine 10 mg 3 times daily and nitrates for afterload reduction therapy. 2. Will obtain a walking O2 saturation evaluation. Will need to be considered for home oxygen therapy if his O2 sats drop. 3. We will continue to follow-up with you to assist with titration of medications. HPI Consult Data Date of Consult: 07/27/24 HPI Narrative Reason for Consultation: Congestive heart failure HPI Narrative: EL TERRY, is a 84 M who presents with progressive dyspnea on exertion in his home environment. He reports as long as he sitting still and resting he is breathing well. When he tries to get up to do almost anything he gets short of breath very quickly. The patient's medications have been titrated recently to try and improve his symptoms. His diuretics have been increased although he denies any significant weight gain denies any lower extremity edema denies any PND orthopnea. The patient has not been on afterload reduction therapy due to his labile renal function which creatinine usually runs around 2.0. The patient does have a history of pulmonary insufficiency and a history of decreased DLCO felt to possibly related to amiodarone exposure. The patient has a EDUCATION FACULTY MEMBER-D device in place last device check was remote on July 14, 2024. This presenting rhythm was atrial and right ventricular sensed. There were 0 atrial high rate episodes there were no VT episodes and no therapy was delivered from the device. The cardiac monitoring showed heart logic to be elevated at 51 consistent with potential volume overload. The patient also had an elevated BNP at 5100 chronically his BNP has been in the 4500?4800 range. The patient recently had had his diuretic therapy increased in his home environment. He continued to have progressive dyspnea on exertion was brought to the emergency department for further evaluation. 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 The patient also has a history of known coronary artery disease status post multiple interventions including remote bypass graft surgery in 1999 and multiple percutaneous revascularizations following that. Last catheterization was in January 2021 he had an extensive inferior wall microinfarction on the stress test and underwent catheterization. That showed an ejection fraction of 15% the left main coronary artery stent was patent and the circumflex artery stent was patent the right coronary artery and LAD were both occluded. The vein graft to the obtuse marginal branch of the right coronary was occluded and left internal mammary artery graft to LAD was patent. The patient developed a sinus arrest requiring resuscitation and was subsequently transferred [facility] where he received a EDUCATION FACULTY MEMBER-D implant in 2020. Last echocardiogram April 2022 showed an EF of 25%. The patient was last evaluated in the office July 12, 2024 and at that time he appeared to be doing very well he occasionally had some chest pressure that was very brief he denied any palpitations he did notice his dyspnea on exertion. He denied any syncope or near syncope spells and denied any therapies from his device. 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 Biventricular ICD (implantable cardioverter-defibrillator) in place (01/28/21) Ischemic cardiomyopathy Right bundle branch block (RBBB) History of CVA (cerebrovascular accident) (03/02/20) Sinus pause Atherosclerosis of coronary artery bypass graft without angina pectoris Nonsustained paroxysmal supraventricular tachycardia Carotid artery stenosis Atherosclerotic heart disease of [place] coronary artery without angina pectoris Type 2 diabetes mellitus Overweight Skin cancer Home Medications ?Medication ?Instructions ?Recorded ?Last Taken ?Type aspirin 81 mg tablet,delayed 81 mg PO DAILY 03/11/20 07/26/24 History release (Adult Aspirin Regimen) Handicap Placcard #1 ea 10/13/21 Unknown Rx cholecalciferol (vitamin D3) 125 125 mcg PO DAILY 06/22/23 07/25/24 History mcg (5,000 unit) tablet carvedilol 25 mg tablet 25 mg PO BID #180 tabs 10/11/23 07/26/24 Rx glimepiride 1 mg tablet 1 mg PO DAILY #90 tabs 10/20/23 07/25/24 Rx nitroglycerin 0.4 mg sublingual 0.4 mg sublingual Q5-15M PRN chest 10/24/23 Unknown Rx tablet pain #25 tabs dapagliflozin propanediol 10 mg 10 mg PO DAILY #90 tabs 12/01/23 07/25/24 Rx tablet (Farxiga) loperamide 2 mg tablet (Imodium 2 mg PO TID PRN loose stool #20 03/20/24 Unknown Rx A-D) tabs furosemide 40 mg tablet 80 mg (2 x 40 mg) PO BID #180 tabs 07/13/24 07/25/24 Rx spironolactone 25 mg tablet 25 mg PO QDAY #30 tabs 07/13/24 07/26/24 Rx Allergy/AdvReac Type Severity Reaction Status Date / Time amiodarone AdvReac Severe decrease Verified 07/26/24 08:58 DLCO atorvastatin AdvReac insomnia Verified 07/26/24 08:58 Family History Other Myocardial infarction Surgical History History of left heart catheterization (01/26/21) History of coronary artery stent placement (07/19/18) H/O coronary artery bypass surgery (1999) Social History Smoking Status: Former smoker alcohol intake: never substance use type: does not use what type of physical activity do you participate in: none ROS Constitutional Constitutional: Reports as per HPI Eyes Eyes: Reports systems reviewed and no addt'l complaints, except as documented ENT HEENT: Reports systems reviewed and no addt'l complaints, except as documented Cardiovascular Cardiovascular: Reports as per HPI Respiratory/Chest Respiratory/Chest: Reports as per HPI Gastrointestinal Gastrointestinal: Reports systems reviewed and no addt'l complaints, except as documented Genitourinary Genitourinary: Reports systems reviewed and no addt'l complaints, except as documented Musculoskeletal Musculoskeletal: Reports systems reviewed and no addt'l complaints, except as documented Integumentary Integumentary: Reports systems reviewed and no addt'l complaints, except as documented Neurologic Neurologic: Reports as per HPI Psychiatric Psychiatric: Reports systems reviewed and no addt'l complaints, except as documented Endocrine Endocrinology: Reports as per HPI Hematologic/Lymphatic Hematologic/Lymphatic: Reports systems reviewed and no addt'l complaints, except as documented Allergic/Immunologic Allergic/Immunologic: Reports systems reviewed and no addt'l complaints, except as documented Physical Exam Narrative Patient resting comfortably in the recumbent position at 45 degrees in the bed. He is resting comfortably on room air. Const alert and oriented x3 HEENT normocephalic Eyes EOMs intact bilaterally Neck no JVD Neck Narrative: At 45 degrees in the bed Chest Chest Narrative: Left infraclavicular incision is well-healed no tenderness around the device pocket. Resp normal respiratory effort Auscultation: rales diffuse (Noted more prominently posteriorly in the lower half of the lung castellanos. These appear to be dry rales.) Cardio regular rate and regular rhythm Cardio Narrative: Very distant heart tones. Heart Sounds: S1 normal and S2 normal; Negative for click, gallop or murmur GI soft to palpation Extremity no pedal edema Neuro Neuro Narrative: Alert and oriented x 3. Very hard of hearing. Psych mental status grossly normal Risk Stratification Risk Stratification Applicable: Yes Age >/= 65: Yes >/= 3 CAD Risk Factors (HTN, HLD, DM, family hx of CAD, or current smoker): Yes Aspirin Use in the Past 7 Days: Yes Severe Angina (>/= episodes in 24 hours): No EKG ST Changes >/= 0.5mm: No Positive Cardiac Marker: Yes LUIS Risk Stratification Score: 4 LUIS % Risk: 20% Risk Charges/Coding Visit Charges Inpatient E&M: 12655 Init Hosp L3 Objective Data Vital Signs: Vital Signs Temp Pulse Resp BP Pulse Ox O2 Del Method 98.0 F 70 15 115/82 H 93 Room Air 07/27/24 04:00 07/27/24 04:00 07/27/24 04:00 07/27/24 04:00 07/27/24 04:00 07/27/24 04:00 Oxygen Delivery Method Room Air Weight: 162 lb 0.636 oz Body Mass Index (BMI) 27.6 Intake & Output: Intake and Output for Last 24 Hours 07/25/24 07/26/24 07/27/24 23:59 23:59 23:59 Intake Total 400 / 400 Balance 400 / 400 Lab / Micro Data Attestation: I reviewed the patient's lab results. 07/27/24 06:35 07/27/24 06:35 Labs: Laboratory Results - last 24 hr 07/26/24 09:18: WBC 9.5, RBC 4.55 L, Hgb 14.1, Hct 40.6, MCV 89.2, MCH 31.0, MCHC 34.7, RDW Std Deviation 43.0, RDW Coeff of Trinity 13.2, Plt Count 311, MPV 9.0, Immature Gran % (Auto) 1.300 H, Neut % (Auto) 71.9 H, Lymph % (Auto) 10.1 L, [place] % (Auto) 10.7 H, Eos % (Auto) 5.3 H, Baso % (Auto) 0.7, Absolute Neuts (auto) 6.8, Absolute Lymphs (auto) 0.96, Nucleated RBC % 0, Sodium 130 L, Potassium 4.7, Chloride 89 L, Carbon Dioxide 28.0, Anion Gap 14, BUN 44 H, Creatinine 2.22 H, Estim Creat Clear Calc 23.64 L, Est GFR (MDRD) Non-Af 29 L, BUN/Creatinine Ratio 19.6, Glucose 344 H, Calcium 9.6, Troponin T High Sens 28 H, NT pro BNP II 5176 H 07/26/24 11:21: Troponin T Hi Sens 2 Hr 26 H 07/26/24 13:20: Troponin T Hi Sens 4Hr 25 H 07/26/24 16:47: POC Glucose 234 H 07/26/24 23:31: POC Glucose 210 H 07/27/24 06:35: WBC 7.6, RBC 4.37 L, Hgb 13.8, Hct 39.2 L, MCV 89.7, MCH 31.6, MCHC 35.2, RDW Std Deviation 43.6, RDW Coeff of Trinity 13.2, Plt Count 306, MPV 8.8, Immature Gran % (Auto) 1.200 H, Neut % (Auto) 62.2, Lymph % (Auto) 14.5 L, [place] % (Auto) 13.6 H, Eos % (Auto) 7.8 H, Baso % (Auto) 0.7, Absolute Neuts (auto) 4.7, Absolute Lymphs (auto) 1.10, Nucleated RBC % 0, Sodium 133, Potassium 4.0, Chloride 93 L, Carbon Dioxide 27.1, Anion Gap 13, BUN 43 H, Creatinine 2.05 H, Estim Creat Clear Calc 25.51 L, Est GFR (MDRD) Non-Af 32 L, BUN/Creatinine Ratio 21.0 H, Glucose 186 H, Calcium 9.4 07/27/24 06:43: POC Glucose 173 H Cardiology Labs/Tests 07/26/24 09:18: WBC 9.5, RBC 4.55 L, Hgb 14.1, Hct 40.6, MCV 89.2, MCH 31.0, MCHC 34.7, Plt Count 311, MPV 9.0, Immature Gran % (Auto) 1.300 H, Neut % (Auto) 71.9 H, Lymph % (Auto) 10.1 L, [place] % (Auto) 10.7 H, Eos % (Auto) 5.3 H, Baso % (Auto) 0.7, Absolute Neuts (auto) 6.8, Nucleated RBC % 0, Sodium 130 L, Potassium 4.7, Chloride 89 L, Carbon Dioxide 28.0, Anion Gap 14, BUN 44 H, Creatinine 2.22 H, Est GFR (MDRD) Non-Af 29 L, BUN/Creatinine Ratio 19.6, Glucose 344 H, Calcium 9.6 07/27/24 06:35: WBC 7.6, RBC 4.37 L, Hgb 13.8, Hct 39.2 L, MCV 89.7, MCH 31.6, MCHC 35.2, Plt Count 306, MPV 8.8, Immature Gran % (Auto) 1.200 H, Neut % (Auto) 62.2, Lymph % (Auto) 14.5 L, [place] % (Auto) 13.6 H, Eos % (Auto) 7.8 H, Baso % (Auto) 0.7, Absolute Neuts (auto) 4.7, Nucleated RBC % 0, Sodium 133, Potassium 4.0, Chloride 93 L, Carbon Dioxide 27.1, Anion Gap 13, BUN 43 H, Creatinine 2.05 H, Est GFR (MDRD) Non-Af 32 L, BUN/Creatinine Ratio 21.0 H, Glucose 186 H, Calcium 9.4 Rhythm: EKG: ECHO: Stress Test: Cardiac Cath: PCI: CT Surgery: Holter monitor: EPS: PPM: CXR: Chest CT Scan: Radiography Diagnostic Testing: Radiology Impression Chest X-Ray 07/26/24 09:38 IMPRESSION: No acute consolidating airspace disease. Left base chronic pleural-parenchymal changes appears stable Reading [facility]
[2024-07-27 09:01] VITALS: BP 95/78; PULSE 72; RESP 14; TEMP 36.8; O2SAT 95
[2024-07-27] MEDS: Spironolactone 25 MG Tablet PO (09:05)
[2024-07-27] MEDS: Isosorbide DN 10 MG Tablet 5 MG PO (09:06)
[2024-07-27] MEDS: Furosemide 80 MG Tablet PO (09:07)
[2024-07-27] MEDS: Empagliflozin 25 MG Tablet PO (09:07)
[2024-07-27] MEDS: Aspirin E.C. 81 MG Tablet PO (09:07)
[2024-07-27] MEDS: Cholecalciferol (Vit D3) 125 MCG CAPSULE (5,000 UNITS) PO (09:07)
[2024-07-27] MEDS: Carvedilol 25 MG Tablet PO (09:08)
[2024-07-27 09:53] VITALS: O2SAT 96; O2SAT 99
[2024-07-27 10:38] VITALS: BP 113/52; PULSE 78; RESP 16; TEMP 36.4; O2SAT 99
--- NOTE | 2024-07-27 10:45 | CASEMGMT ---
KARLA GORDON received order for palliative consult. KARLA GORDON completed palliative screening tool and referral sent to [facility].
[2024-07-27 11:56] LABS: Bedside Glucose 270 mg/dL (74-106)
--- NOTE | 2024-07-27 14:27 | PCM.DC.SUM ---
Providers Date of Admission: 07/26/24 Primary Care Physician: Dr. Heather Morrissey MD Consultations 07/26/24 15:28 Consult: Cardiology Routine Consulting Provider: Stephanie Harrell Reason for Consult: CHF exacerbation and med management EMERGENT Consult: No Notified: Yes Date Notified: 07/26/24 Time Notified: 13:23 Method of Notification: ED Physician Initiated Consult: Hospice / Palliative Care Routine Consulting Provider: [facility] Reason for Consult: Palliative care consult for CHF EMERGENT Consult: No MD Notified: Yes Date Notified: 07/26/24 Time Notified: 15:50 Method of Notification: per case management Reason For Visit: CHF EXACERBATION Diagnosis Discharge Diagnosis (1) CHF (congestive heart failure): Status: Acute Code(s): I50.9 - Heart failure, unspecified Qualifiers: Heart failure type: systolic Heart failure chronicity: acute on chronic Qualified Code(s): I50.23 - Acute on chronic systolic (congestive) heart failure (2) Chronic kidney disease: Status: Chronic Code(s): N18.9 - Chronic kidney disease, unspecified Qualifiers: Chronic kidney disease stage: stage 3 (moderate) Chronic kidney disease stage 3 subtype: stage 3b (GFR 30-44) Qualified Code(s): N18.32 - Chronic kidney disease, stage 3b (3) Biventricular ICD (implantable cardioverter-defibrillator) in place: Status: Chronic Code(s): Z95.810 - Presence of automatic (implantable) cardiac defibrillator (4) Atherosclerosis of coronary artery bypass graft without angina pectoris: Status: Chronic Code(s): I25.810 - Atherosclerosis of coronary artery bypass graft(s) without angina pectoris Qualifiers: [place] vs. transplanted heart: [place] heart Qualified Code(s): I25.810 - Atherosclerosis of coronary artery bypass graft(s) without angina pectoris (5) Nonsustained paroxysmal supraventricular tachycardia: Status: Chronic Code(s): I47.1 - Supraventricular tachycardia Medications at Discharge Home Medications aspirin 81 mg tablet,delayed release (Adult Aspirin Regimen) 81 mg PO DAILY 03/11/20 Handicap Placcard #1 ea 10/13/21 cholecalciferol (vitamin D3) 125 mcg (5,000 unit) tablet 125 mcg PO DAILY 06/22/23 carvedilol 25 mg tablet 25 mg PO BID #180 tabs 10/11/23 glimepiride 1 mg tablet 1 mg PO DAILY #90 tabs 10/20/23 nitroglycerin 0.4 mg sublingual tablet 0.4 mg sublingual Q5-15M PRN chest pain #25 tabs 10/24/23 loperamide 2 mg tablet (Imodium A-D) 2 mg PO TID PRN loose stool #20 tabs 03/20/24 furosemide 40 mg tablet 80 mg (2 x 40 mg) PO BID #180 tabs 07/13/24 spironolactone 25 mg tablet 25 mg PO QDAY #30 tabs 07/13/24 empagliflozin 25 mg tablet (Jardiance) 25 mg PO DAILY #30 tabs 07/27/24 hydralazine 10 mg tablet 10 mg PO TID #90 tabs 07/27/24 isosorbide dinitrate 10 mg tablet 5 mg (1/2 x 10 mg) PO BID #60 tabs 07/27/24 Hospital Course Operations None Procedures 2-D Echocardiogram Summary of Care Provided Minutes Spent on Discharge: 32 Hospital Course: This is an 84-year-old male who presents with exertional dyspnea. Had been getting more short of breath with activity. Recently had his furosemide increased from 40-80 twice daily and then been started on Aldactone. Patient had been not been following a fluid restricted diet. Patient presented and was diagnosed to be in CHF exacerbation and was started on IV furosemide. Patient was seen in consultation by cardiology who had ordered hydralazine and nitrates as patient has not been able to tolerate JORDEN inhibitors nor angiotensin receptor blockers due to CKD. Patient today was feeling much better was ambulated and did well. Patient will be discharged home in stable condition. Physical Exam Const alert and no apparent distress Resp normal respiratory effort, no retractions, no use of accessory muscles and clear to auscultation bilaterally Cardio regular rate, regular rhythm, S1 normal heart sound and S2 normal heart sound GI normal to inspection, nondistended, normoactive bowel sounds, soft to palpation, non-tender and non-distended Extremity normal to inspection and full ROM Neuro Sensorium / Orientation: awake and alert Weight / BMI Weight Weight: 73.5 kg Body Mass Index (BMI) 27.6 ABG / Lab / Microbiology Data 07/27/24 06:35 07/27/24 06:35 Laboratory: Laboratory Results - last 24 hr 07/26/24 16:47: POC Glucose 234 H 07/26/24 23:31: POC Glucose 210 H 07/27/24 06:35: WBC 7.6, RBC 4.37 L, Hgb 13.8, Hct 39.2 L, MCV 89.7, MCH 31.6, MCHC 35.2, RDW Std Deviation 43.6, RDW Coeff of [place] 13.2, Plt Count 306, MPV 8.8, Immature Gran % (Auto) 1.200 H, Neut % (Auto) 62.2, Lymph % (Auto) 14.5 L, [place] % (Auto) 13.6 H, Eos % (Auto) 7.8 H, Baso % (Auto) 0.7, Absolute Neuts (auto) 4.7, Absolute Lymphs (auto) 1.10, Nucleated RBC % 0, Sodium 133, Potassium 4.0, Chloride 93 L, Carbon Dioxide 27.1, Anion Gap 13, BUN 43 H, Creatinine 2.05 H, Estim Creat Clear Calc 25.51 L, Est GFR (MDRD) Non-Af 32 L, BUN/Creatinine Ratio 21.0 H, Glucose 186 H, Calcium 9.4 07/27/24 06:43: POC Glucose 173 H 07/27/24 11:29: POC Glucose 270 H Radiography Diagnostic Testing: Radiology Impression Echocardiogram 07/26/24 15:28 Interpretation Summary The estimated ejection fraction is 30 %. There is moderate to severe global hypokinesis of the left ventricle. There is evidence of diastolic dysfunction. The left atrium is moderately enlarged. Ordering Physician: Lewis Sifuentes Referring Physician: Heather Morrissey Performed By: Mandi Orr, MAMI, RVT D/C Instructions Discharge Diet: Low fat / Low cholesterol and - (1.5 L (50 ounces) of fluid per day.) DC O2, CPAP, BIPAP Needs Home O2 Discharge instructions: No Meaningful Use Info Meaningful Use Meaningful Use Diagnoses (Choose all that apply): CHF CHF JORDEN/ARB ordered at discharge?: No Reason JORDEN/ARB not ordered?: Worsening renal disease Documented LVEF (%): 30 Ischemic Stroke Statin Dosing Therapy Reference: STATIN DOSE THERAPY REFERENCE: * Patients > 75 years receive moderate or high dose statin therapy. * Patients 75 years or YOUNGER should receive HIGH intensity statin dose unless contraindicated. You will be required to document reason for non-treatment if statin daily dose does not meet guidelines. HIGH DOSE STATIN THERAPY DAILY Atorvastatin > than or = to 40 mg Rosuvastatin > than or = to 20 mg Amlodipine + Atorvastatin > than or = to 2.5/40 mg Ezetimibe + Simvastatin 10/80 mg Simvastatin 80mg Discharge Plan Admission Admit Date/Time: 07/26/24 13:05 Primary Reason for Your Visit: CHF exacerbation Attending Provider: Virgil Gonzalez Primary Care Provider: Heather Morrissey Consulting Providers: Stephanie Harrell; Abhijit Joe; Leigh Ann Serrano; Amber Hurst; Liss Wolff; Heena Soler NP; Anne Degroot; Lewis Sifuentes Instructions Patient Instructions: Heart Failure Flare Up Signs, Heart Failure: Tracking Your Weight, Heart Failure: Medications to Help Your Heart, Heart Failure Dc, Heart Failure: Know Your Baselines, Heart Failure Care Discharge Orders/Prescriptions Prescriptions: New isosorbide dinitrate 10 mg Tablet 5 mg PO BID Qty: 60 0RF hydralazine 10 mg Tablet 10 mg PO TID Qty: 90 0RF Jardiance 25 mg Tablet 25 mg PO DAILY Qty: 30 0RF Continued aspirin [Adult Aspirin Regimen] 81 mg tablet,delayed release (DR/EC) 81 mg PO DAILY (DME) Handicap Placcard See Rx Instructions .Route .MEDSUPPLY Qty: 1 0RF Rx Instructions: Dx: CHF Exp: 10/13/2026 cholecalciferol (vitamin D3) 125 mcg (5,000 unit) tablet 125 mcg PO DAILY carvedilol 25 mg tablet 25 mg PO BID Qty: 180 3RF Rx Instructions: must administer with a meal/food glimepiride 1 mg tablet 1 mg PO DAILY Qty: 90 3RF nitroglycerin 0.4 mg tablet, sublingual 0.4 mg sublingual Q5-15M PRN (Reason: chest pain) Qty: 25 3RF Rx Instructions: do not exceed 3 doses per episode loperamide [Imodium A-D] 2 mg tablet 2 mg PO TID PRN (Reason: loose stool) Qty: 20 0RF spironolactone 25 mg tablet 25 mg PO QDAY Qty: 30 6RF furosemide 40 mg tablet 80 mg PO BID Qty: 180 3RF Discontinued Farxiga 10 mg tablet 10 mg PO DAILY Qty: 90 3RF Referrals / Follow Up: Heather Morrissey MD [Primary Care Provider] - Within 2 Weeks [facility] [Provider Group] - Within 1 Month Disposition Disposition (needs filled in before D/C Order can be placed): Home, Self Care Charges/Coding Visit Charges Inpatient E&M: 29340 Disch Hosp >30min
--- NOTE | 2024-07-27 15:03 | CASEMGMT ---
Patient has order for discharge. Patient discharging on Jardiance, RN CM called [facility] copay is $468.88 as patient has deductible. RN CM in to discuss needs at discharge, at bedside. RN CM updated patient and regarding cost of Jardiance. states that patient is already taking Farxiga and asked if they could just continue Farxiga and not fill Jardiance. RN CM updated hospitalist and agreeable to DC Jardiance and continue Farxiga. RN CM updated nursing to medication change. RN CM updated patient and . RN CM updated patient regarding palliative referral as well. Patient and had no further questions or concerns.
== END 2024-07-27 10:38 | disposition home or self-care (01) ==
LOC: ED 13:24 → PCU 13:59
PROVIDERS: Admitting Provider Family Medicine; Emergency Provider Emergency Medicine; PCP Internal Medicine
DX: I13.0 Hypertensive heart and chronic kidney disease with heart failure and stage 1 through stage 4 chronic kidney disease, or unspecified chronic kidney disease (principal); I50.23 Acute on chronic systolic (congestive) heart failure; E11.22 Type 2 diabetes mellitus with diabetic chronic kidney disease; N18.32 Chronic kidney disease, stage 3b; I25.5 Ischemic cardiomyopathy; Z95.5 Presence of coronary angioplasty implant and graft; Z95.810 Presence of automatic (implantable) cardiac defibrillator; Z79.82 Long term (current) use of aspirin; I47.10 Supraventricular tachycardia, unspecified; I25.810 Atherosclerosis of coronary artery bypass graft(s) without angina pectoris; Z87.891 Personal history of nicotine dependence; Z79.899 Other long term (current) drug therapy; Z79.84 Long term (current) use of oral hypoglycemic drugs
CPT/HCPCS: 36415; 71046; 80048; 82962; 83880; 84484; 85025; 93005; 93308; 96372; 96374; 97802; 99221; 99285; Q9957; A4216; C8924; G0378; J1938

== ENCOUNTER → 2024-12-13 | Outpatient (CLI) | payer MEDICARE, OTHER, SELFPAY ==
[2024-12-13 11:34] LABS: Anion Gap 11 (5-15); BUN 46 mg/dL (4-19); BUN/Creat Ratio 18.5 RATIO (10-20); Calcium,Total 9.2 mg/dL (7.6-11.0); Carbon Dioxide 26.1 mmol/L (21.0-32.0); Chloride 95 mmol/L (98-108); Glucose 273 mg/dL (70-99); Magnesium 2.9 mg/dL (1.5-2.2); PSA,Total- Diagnostic 2.70 ng/mL (0.00-4.00); Potassium 4.6 mmol/L (3.3-5.1); Pro- Brain NATRIURETIC PEPTIDE 5081 pg/mL (<=1800)
== END | disposition home or self-care (01) ==
PROVIDERS: PCP Internal Medicine; Referring Provider Internal Medicine; Visit Provider Internal Medicine
DX: N18.32 Chronic kidney disease, stage 3b (principal); I50.23 Acute on chronic systolic (congestive) heart failure; E87.5 Hyperkalemia; N40.0 Benign prostatic hyperplasia without lower urinary tract symptoms; R97.20 Elevated prostate specific antigen [PSA]
CPT/HCPCS: 36415; 80048; 83735; 83880; 84153